=== PATIENT | female | born 1965 | race Caucasian/White ===

== ENCOUNTER → 2019-11-21 14:04 | Outpatient (BNVA) | payer BC, SELFPAY | PROVIDERS: Family Provider Family Medicine; PCP Family Medicine; Visit Provider Nurse Practitioner | DX: G89.29 Other chronic pain (principal); M51.36 Other intervertebral disc degeneration, lumbar region; M50.30 Other cervical disc degeneration, unspecified cervical region; Z79.891 Long term (current) use of opiate analgesic | CPT/HCPCS: 99214 ==

== ENCOUNTER → 2020-01-12 13:03 | Outpatient (BNVA) | payer BC, SELFPAY | PROVIDERS: Family Provider Family Medicine; PCP Internal Medicine; Visit Provider Anesthesiology | DX: G89.29 Other chronic pain (principal); M50.30 Other cervical disc degeneration, unspecified cervical region; M51.36 Other intervertebral disc degeneration, lumbar region; Z79.891 Long term (current) use of opiate analgesic | CPT/HCPCS: 99214 ==

== ENCOUNTER → 2020-03-26 10:06 | Outpatient (BNVA) | payer MEDICARE, SELFPAY | PROVIDERS: Family Provider Family Medicine; PCP Internal Medicine; Visit Provider Anesthesiology | DX: G89.29 Other chronic pain (principal); M50.30 Other cervical disc degeneration, unspecified cervical region; M51.36 Other intervertebral disc degeneration, lumbar region; M54.41 Lumbago with sciatica, right side; Z79.891 Long term (current) use of opiate analgesic | CPT/HCPCS: 99214 ==

== ENCOUNTER 2020-05-07 10:52 | Outpatient (CLI) | payer MEDICARE, SELFPAY ==
--- NOTE | 2020-05-07 10:58 | MM_ITS ---
WS: [id number] BILATERAL DIGITAL SCREENING MAMMOGRAPHY WITH CAD CLINICAL INFORMATION: SCREENING HISTORY: Screening mammogram. No current complaints. Chronic bilateral breast lumps COMPARISON: [id number] TECHNIQUE: Bilateral CC and MLO views. FINDINGS: Scattered fibroglandular densities bilaterally. No suspicious focal mass, asymmetry, calcifications, or architectural distortion. No evidence of malignancy. Lucent centered calcification left breast. MM/[place] [id number] IMPRESSION: BI-RADS: 2-Benign FOLLOW UP: 1 Year Follow-up Recommend return to annual screening mammography.
== END 2020-05-07 10:53 | disposition home or self-care (01) ==
LOC: RADSHAW 10:57
PROVIDERS: PCP Internal Medicine; Visit Provider Nurse Practitioner Family
DX: Z12.31 Encounter for screening mammogram for malignant neoplasm of breast (principal)
CPT/HCPCS: 77067

== ENCOUNTER 2020-05-09 10:08 | Outpatient (CLI) | payer MEDICARE, SELFPAY ==
--- NOTE | 2020-05-09 10:13 | MR_ITS ---
WS: [id number] MRI CERVICAL SPINE NONCONTRAST TECHNIQUE: Sagittal T1, T2 and STIR imaging. Axial T2, gradient, and fiesta imaging. CLINICAL INFORMATION: CERVICAL DISC DEGENERATION COMPARISON: None. FINDINGS: Exaggeration normal cervical lordosis. No high-grade central canal narrowing. Cord signal is normal. Slight retrolisthesis C4 on C5. C2-C3: Normal. C3-C4: Mild disc bulging with a tiny central protrusion. Mild facet arthropathy. Mild left foraminal narrowing. Spinal canal is patent. C4-C5: Mild disc bulging with osteophytic ridging. Moderate left greater than right bony foraminal na rrowing. Mild facet arthropathy. Mild central canal stenosis. C5-C6: Right pericentral disc osteophyte protrusion with mild central canal stenosis and slight conta ct of the cervical cord. Mild bilateral bony foraminal narrowing. Moderate facet arthropathy. C6-C7: Mild disc osteophyte complex with endplate ridging. Mild left and no significant right foramin al narrowing. Spinal canal is patent. C7-T1: Mild left greater than right bony foraminal narrowing. Spinal canal is patent. Mild facet arth ropathy. . Visualized brain stem structures: Normal. Prevertebral soft tissues: Normal. Spondylitic changes progressed slightly since 2016. MR/MR cervical spin wo con* [id number] IMPRESSION: 1. Exaggeration of the normal cervical lordosis. No high-grade central canal n arrowing. Cord signal is normal. 2. Mild central canal stenosis C4-C5 and C5-C6. 3. Multilevel mild to moderate bony foraminal narrowing described above. 4. Tiny left pericentral disc osteophyte protrusion C6-C7. 5. Prior postoperative changes in the upper thoracic spine with susceptibility artifact.
--- NOTE | 2020-05-09 11:00 | XR_ITS ---
WS: [id number] Lateral views of cervical spine in the flexion, extension and neutral positions. 05/09/2020 Clinical Data: cervical pain Comparison: None. Findings: No prevertebral soft tissue swelling is seen. There are no compression fractures. The disc heights ar e normal. No subluxation is seen. On flexion and extension there is no limitation of motion or sublux ation. The C6 and C7 vertebral bodies were obscured by the shoulders. XR/XR cervical spine fl/ex [id number] Impression: Negative lateral view of the cervical spine.
== END 2020-05-09 10:09 | disposition home or self-care (01) ==
PROVIDERS: Family Provider Internal Medicine; PCP Internal Medicine; Visit Provider Specialist
DX: M50.30 Other cervical disc degeneration, unspecified cervical region (principal); M48.02 Spinal stenosis, cervical region; M25.78 Osteophyte, vertebrae
CPT/HCPCS: 72040; 72141

== ENCOUNTER → 2020-05-17 13:02 | Outpatient (BNVA) | payer MEDICARE, SELFPAY | PROVIDERS: Family Provider Family Medicine; PCP Nurse Practitioner Family; Visit Provider Anesthesiology | DX: G89.29 Other chronic pain (principal); M51.36 Other intervertebral disc degeneration, lumbar region; M43.17 Spondylolisthesis, lumbosacral region; M50.30 Other cervical disc degeneration, unspecified cervical region; M50.020 Cervical disc disorder with myelopathy, mid-cervical region, unspecified level; M43.12 Spondylolisthesis, cervical region; Z98.1 Arthrodesis status; Z79.891 Long term (current) use of opiate analgesic | CPT/HCPCS: 99214 ==

== ENCOUNTER 2020-06-07 08:35 | Outpatient (CLI) | payer MEDICARE, SELFPAY ==
--- NOTE | 2020-06-07 09:00 | IR_ITS ---
WS: [id number] Lumbar myelogram, 06/07/2020 Clinical Data: thoracic pain Comparison: None. Fluoroscopy time: 5.4 minutes. Findings: With the usual technique, a 22 gauge spinal needle was inserted into the lumbar subarachnoid space at L2-L3. The contrast material was hand injected. Approximately 15 mL of 300 mg/mL Omnipaque filled the lumbar subarachnoid space. There was a partial epidural injection. Flexion, extension and neutral lateral views demonstrated no limitations of motion or increase in sub luxation. There was degenerative disc narrowing at L5-S1 with subluxation of 1.8 cm. No intramedullary, intradu ral or extradural defects could be seen. Thoracic myelogram: The contrast material flowed into the thoracic subarachnoid space. No intramedullary or intradural or extradural defects could be seen. The patient has had a thoracic fusion. There are pedicle screws on the right at T3, T4, T8 and T9. On the left the pedicle screws are at T4, T8 and T9. There are bilat eral Neff rods. There are compression fractures at T6 and T7 with an anterior fusion. Cervical myelogram: The contrast material then flowed into the cervical subarachnoid space. Lateral imaging in the neutra l, flexion and extension views was obtained. No intramedullary, intradural or extradural defects are seen. There was no limitation of motion or subluxation on flexion or extension. IR/IR myelogram spine total [id number] Impression: Negative lumbar myelogram. IMPRESSION: Negative thoracic myelogram. IMPRESSION: Negative cervical myelogram.
--- NOTE | 2020-06-07 11:00 | CT_ITS ---
WS: [id number] CT cervical spine. Additional two-dimensional coronal and sagittal reconstruction was performed post myelogram. 06/07/2020 Clinical Data: cervical pain Comparison: CT cervical spine postmyelogram, 02/18/2017. DLP: 2462.[address] scans at [facility] use at least one of these dose optimization techniques: automat ed exposure control; mA and/or kV adjustment per patient size (includes targeted exams where dose is matched to clinical indication); or iterative reconstruction. Findings: No compression fractures are seen. The disc heights are normal except for narrowing at C6-C7.. The sp inous processes are in good alignment. There is a minimal retrolisthesis of 0.2 cm of C4 on C5 unchan ged. The odontoid is unremarkable. There is no prevertebral soft tissue swelling. The soft tissues of the cervical spine in the lung apices are not remarkable. C2-C3: No disc bulge, canal stenosis or foraminal stenosis is seen. C3-C4: No disc bulge, canal stenosis or foraminal stenosis is seen. C4-C5: Minimal disc osteophyte posterior impingement is seen but there is no significant canal stenos is. There is left facet joint arthritis. C5-C6: No disc bulge, canal stenosis or foraminal stenosis is seen. C6-C7: There is posterior disc osteophyte on the left paracentrally with mild canal stenosis. C7-T1: No disc bulge, canal stenosis or foraminal stenosis is seen. CT/CT cervical spine w con [id number] Impression: 1. Negative for significant change from prior study. 2. Minimal canal stenosis at C6-7 unchanged.
--- NOTE | 2020-06-07 11:00 | CT_ITS ---
WS: [id number] CT scan of the thoracic spine. Additional two-dimensional coronal and sagittal reconstruction was per formed post myelogram. 06/07/2020 Clinical Data: thoracic pain Comparison: CT thoracic spine post myelogram, 02/18/2017. DLP: 923.[address] scans at [facility] use at least one of these dose optimization techniques: automat ed exposure control; mA and/or kV adjustment per patient size (includes targeted exams where dose is matched to clinical indication); or iterative reconstruction. Findings: There are compression fractures of the T5 and T6 vertebral bodies with an anterior fusion. There is p osterior impingement of the posterior inferior and anterior superior aspects of the T5 and T6 vertebr al bodies into the spinal canal of approximately 0.5 cm unchanged. There are pedicle screws at T3, T4 , T7 and T8 and these have not changed in position. The left T3 pedicle screw does penetrate obliquel y and ends adjacent to or perhaps even within the thoracic subarachnoid space and this is unchanged. The bilateral pedicle screws are connected with Neff rods. There has been a laminectomy at the T5 level, also unchanged. There is a kyphosis at the T5 level also unchanged. No intramedullary, intr adural or extradural defects are seen. The disc spaces from T1-T2 through T4-T5 show no significant narrowing. At T5-C6 there is severe disc space narrowing which is unchanged. At T8-T9 there is a left paracentral disc osteophyte encroachment on the left unchanged. The disc spaces from T9-T10 inferiorly to the T12-L1 no change from before. CT/CT thoracic spine w con [id number] Impression: 1. No change in compression fractures of T5 and T6. 2. No change in posterior fusion from T3 through T8 and position of pedicle scr ews. 3. No change in central canal stenosis at the T5-T6 level.
--- NOTE | 2020-06-07 11:00 | CT_ITS ---
WS: [id number] CT of the lumbar spine, additional two-dimensional coronal and sagittal imaging was obtained post mye logram. 06/07/2020 Clinical Data: lumbar pain Comparison: None. DLP: 969.[address] scans at [facility] use at least one of these dose optimization techniques: automat ed exposure control; mA and/or kV adjustment per patient size (includes targeted exams where dose is matched to clinical indication); or iterative reconstruction. Findings: There is a 1.8 cm subluxation of L5 on S1 with degenerative disc disease. No lumbar victoriano phyllis fractures are seen. There are hypertrophic changes between the L2, L3, L4 and L5 spinous process es. T12-L1: No canal stenosis, disc bulge or foraminal narrowing is seen. L1-L2: No canal stenosis, disc bulge or foraminal narrowing is seen. L2-L3: No canal stenosis, disc bulge or foraminal narrowing is seen. L3-L4: No canal stenosis, disc bulge or foraminal narrowing is seen. L4-L5: There is a small central bulging disc with posterior osteophyte formation. The facet joints ar e hypertrophic. This causes canal and foraminal stenosis. 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 However no canal stenosis or foraminal stenosis is seen. CT/CT lumbar spine w con [id number] Impression: 1. Negative for intramedullary, intradural or extradural defects. 2. Canal and foraminal stenosis at L4-L5. 3. 1.8 cm subluxation of L5 on S1 with degenerative disc changes.
[2020-06-07] MEDS: iohexol 300 mg/mL 50 mL Btl INTRATHECA (11:03)
== END 2020-06-07 08:36 | disposition home or self-care (01) ==
LOC: RADWPI 08:39
PROVIDERS: PCP Nurse Practitioner Family; Visit Provider Specialist
DX: S22.050A Wedge compression fracture of T5-T6 vertebra, initial encounter for closed fracture (principal); M43.24 Fusion of spine, thoracic region; M48.04 Spinal stenosis, thoracic region; M48.061 Spinal stenosis, lumbar region without neurogenic claudication; M48.02 Spinal stenosis, cervical region; X58.XXXA Exposure to other specified factors, initial encounter
CPT/HCPCS: 62305; 72040; 72120; 72126; 72129; 72132; Q9967

== ENCOUNTER → 2020-07-24 12:44 | Outpatient (BNVA) | payer MEDICARE, SELFPAY | PROVIDERS: Family Provider Family Medicine; PCP Nurse Practitioner Family; Visit Provider Anesthesiology | DX: G89.29 Other chronic pain (principal); M51.36 Other intervertebral disc degeneration, lumbar region; M43.17 Spondylolisthesis, lumbosacral region; M50.30 Other cervical disc degeneration, unspecified cervical region; M50.020 Cervical disc disorder with myelopathy, mid-cervical region, unspecified level; M43.12 Spondylolisthesis, cervical region; Z98.1 Arthrodesis status; Z79.891 Long term (current) use of opiate analgesic | CPT/HCPCS: 99214 ==

== ENCOUNTER → 2020-08-26 13:50 | Outpatient (BNVA) | payer MEDICARE, SELFPAY | PROVIDERS: Family Provider Family Medicine; PCP Nurse Practitioner Family; Referring Provider Licensed Practical Nurse; Visit Provider Specialist | DX: G56.01 Carpal tunnel syndrome, right upper limb (principal) | CPT/HCPCS: 73110 ==

== ENCOUNTER → 2020-09-25 13:27 | Outpatient (BNVA) | payer MEDICARE, SELFPAY | PROVIDERS: Family Provider Family Medicine; PCP Nurse Practitioner Family; Visit Provider Anesthesiology | DX: G89.29 Other chronic pain (principal); M54.41 Lumbago with sciatica, right side; M51.36 Other intervertebral disc degeneration, lumbar region; M43.17 Spondylolisthesis, lumbosacral region; M43.12 Spondylolisthesis, cervical region; M50.020 Cervical disc disorder with myelopathy, mid-cervical region, unspecified level; M50.30 Other cervical disc degeneration, unspecified cervical region; Z98.1 Arthrodesis status; Z79.891 Long term (current) use of opiate analgesic | CPT/HCPCS: 99214 ==

== ENCOUNTER → 2020-11-27 10:22 | Outpatient (BNVA) | payer MEDICARE, SELFPAY | PROVIDERS: Family Provider Family Medicine; PCP Nurse Practitioner Family; Visit Provider Nurse Practitioner | DX: G89.29 Other chronic pain (principal); G44.009 Cluster headache syndrome, unspecified, not intractable; M43.17 Spondylolisthesis, lumbosacral region; M51.36 Other intervertebral disc degeneration, lumbar region; M50.30 Other cervical disc degeneration, unspecified cervical region; M50.020 Cervical disc disorder with myelopathy, mid-cervical region, unspecified level; M43.12 Spondylolisthesis, cervical region; Z98.1 Arthrodesis status; Z79.891 Long term (current) use of opiate analgesic | CPT/HCPCS: 99214 ==

== ENCOUNTER → 2020-11-29 09:38 | Outpatient (BNVA) | payer MEDICARE, SELFPAY | PROVIDERS: Family Provider Family Medicine; PCP Nurse Practitioner Family; Visit Provider Orthopaedic Surgery | DX: M43.06 Spondylolysis, lumbar region (principal); Z98.1 Arthrodesis status | CPT/HCPCS: 72072; 72110 ==

== ENCOUNTER → 2021-02-12 10:01 | Outpatient (BNVA) | payer MEDICARE, SELFPAY | PROVIDERS: Family Provider Family Medicine; PCP Nurse Practitioner Family; Visit Provider Anesthesiology | DX: G89.29 Other chronic pain (principal); M50.30 Other cervical disc degeneration, unspecified cervical region; G44.009 Cluster headache syndrome, unspecified, not intractable; M54.41 Lumbago with sciatica, right side; M51.36 Other intervertebral disc degeneration, lumbar region; M43.06 Spondylolysis, lumbar region; Z98.1 Arthrodesis status; Z79.1 Long term (current) use of non-steroidal anti-inflammatories (NSAID); Z79.891 Long term (current) use of opiate analgesic | CPT/HCPCS: 99214 ==

== ENCOUNTER → 2021-03-03 15:33 | Outpatient (BNVA) | payer MEDICARE, SELFPAY | PROVIDERS: Family Provider Family Medicine; PCP Nurse Practitioner Family; Visit Provider Orthopaedic Surgery | DX: Z01.812 Encounter for preprocedural laboratory examination (principal); Z20.822 Contact with and (suspected) exposure to COVID-19 | CPT/HCPCS: 87635 ==

== ENCOUNTER 2021-03-06 07:09 | Outpatient (CLI) | payer MEDICARE, SELFPAY ==
--- NOTE | 2021-03-06 07:36 | XR_ITS ---
WS: [id number] KUB, AP view, 03/06/2021 Clinical Data: Renal calculus or stone Comparison: KUB, 08/29/2018. Findings: No abnormal intraabdominal masses are seen. There is no dilatated small bowel or evidence of obstruct ion. There are numerous calcifications overlying both kidneys. There are clips in the right upper quadrant from a cholecystectomy. There is an L5 laminectomy. There are no calcifications in the true pelvis. XR/XR KUB [id number] Impression: Bilateral renal calculi.
== END 2021-03-06 07:10 | disposition home or self-care (01) ==
PROVIDERS: PCP Nurse Practitioner Family; Visit Provider Urology
DX: N20.0 Calculus of kidney (principal)
CPT/HCPCS: 74018; 81003

== ENCOUNTER → 2021-03-14 11:01 | Outpatient (BNVA) | payer MEDICARE, SELFPAY | PROVIDERS: PCP Nurse Practitioner Family; Visit Provider Nurse Practitioner Family | DX: N12 Tubulo-interstitial nephritis, not specified as acute or chronic (principal) | CPT/HCPCS: 81003 ==

== ENCOUNTER 2021-03-19 13:01 | Outpatient (CLI) | payer MEDICARE, SELFPAY | END 2021-03-19 13:02 | disposition home or self-care (01) | PROVIDERS: PCP Nurse Practitioner Family; Visit Provider Nurse Practitioner Family | DX: N20.9 Urinary calculus, unspecified (principal) | CPT/HCPCS: 74018; 81003 ==

== ENCOUNTER → 2021-04-04 14:29 | Outpatient (BNVA) | payer MEDICARE, SELFPAY | PROVIDERS: PCP Nurse Practitioner Family; Visit Provider Orthopaedic Surgery | DX: Z01.818 Encounter for other preprocedural examination (principal); Z20.822 Contact with and (suspected) exposure to COVID-19 | CPT/HCPCS: 87635 ==

== ENCOUNTER → 2021-04-08 10:26 | Outpatient (BNVA) | payer MEDICARE, SELFPAY | PROVIDERS: PCP Nurse Practitioner Family; Visit Provider Nurse Practitioner | DX: G89.29 Other chronic pain (principal); M54.41 Lumbago with sciatica, right side; M43.17 Spondylolisthesis, lumbosacral region; M51.36 Other intervertebral disc degeneration, lumbar region; M50.30 Other cervical disc degeneration, unspecified cervical region; M43.12 Spondylolisthesis, cervical region; M50.020 Cervical disc disorder with myelopathy, mid-cervical region, unspecified level; G44.009 Cluster headache syndrome, unspecified, not intractable; Z98.1 Arthrodesis status; Z79.891 Long term (current) use of opiate analgesic | CPT/HCPCS: 99213; 99214 ==

== ENCOUNTER 2021-04-09 14:41 | Observation (INO) | payer MEDICARE, SELFPAY ==
[2021-04-02 12:07] VITALS: BMI 36.0
--- NOTE | 2021-04-02 12:34 | ANES.PREANE2 ---
Pre-Anesthetic Assessment Pre-Anesthetic Assessment: Height/Weight: Height 1.7 m Weight 104.326 kg Preop Diagnosis: hardware malfunction Proposed Procedure: Operation Date: 04/09/21 07:00 Proposed Procedures p Posterior Lumbar Interbody Fusion [id number] [id number] [id number] 28103 [id number] 13146 M43.17(Not Applicable) - Chauncey García DO s Hardware Removal Lumbar(Not Applicable) - Chauncey García DO Familial anesthetic complications: PONV - requires scopolamine Was Beta Lauryn taken within 24 hours: N/A Was Clonidine taken within 24 hours: N/A Social: Social History: No alcohol and No tobacco Exam: Pre-Anes Outpt Exam: alert, oriented x 3, clear to auscultation bilaterally and regular rate & rhythm Airway: Cervical ROM: WNL MP: 4 Dentition: Full Pulmonary: Comments: hx bronchitis and pneumonia CV/HEM: CV/HEM: HTN : Comments: on enalapril-HCTZ for kidney stones + BP Metabolic: Metabolic: Morbid obesity Musc/skel: Musc/skel: Lower Back Pain and OA/DJD Neuropsych: Neuropsych: Neuropathy (d/t hardware malplacement) Comments: curved back Anesthetic Plan: ASA status: 2 Anesthesia: General Risk of > 500 ml blood loss (7ml/kg in children): Yes, adequate IV access and fluids planned PFSH Anesthesia PFSH: Medical History Cervical disc disorder with myelopathy of mid-cervical region Chronic headaches Chronic thoracic spine pain Degenerative disc disease, cervical Encounter for long-term opiate analgesic use Lumbar degenerative disc disease Lumbar spondylolysis Spondylolisthesis of cervical region Spondylolisthesis of lumbosacral region Ureteral calculi Urolithiasis Surgical History History of ankle surgery History of thoracic spinal fusion S/P section S/P cholecystectomy S/P endoscopy upper and lower S/P fusion of thoracic spine S/P spinal fusion Family History Mother Cancer breast- at 87 Hypertension Father Cancer prostate- at 93 Diabetes Brother Chronic kidney disease (CKD) kidney stones Sister No problems noted. Social History Smoking and tobacco status: never smoked Second hand smoke exposure: No Alcohol intake: never Marital status: / Current occupational status: employed History of recent travel: No Data Anesthesia Cardiac Studies: No Data to Display
[2021-04-09] VITALS (21 sets, daily range): BP systolic 106–164; BP diastolic 76–103; PULSE 82–99; RESP 16–22; TEMP 36.3–37.1; O2SAT 94–100
--- NOTE | 2021-04-09 | SCC_ITS ---
Procedure Done: 1. L5/S1 Interbody fusion with posterolateral fusion 2. Instrumentation L4-S1 3. Insertion of Osteoamp Sponges at L5/S1 disk space 4. Laminectomy L5 for purposes of decompression 5. use of autograft from same incision 6. use of allograft 7. Bone marrow aspirate from Left iliac crest 8. Use of computer navigation/ stereotactic 9. removal of deep hardware from the thoracic spine 69 seconds of fluoroscopic guidance, for a cumulative dose of 220.0 mGy, was provided to Dr. García by the radiology department. C-arm images of the lumbar spine were saved for the patient's permanent record. [facility]
--- NOTE | 2021-04-09 | XR_ITS ---
WS: [id number] Exam: XR lumbar spine 2-3V* [id number] Date/Time of Exam: 04/09/2021 12:00 AM Reason For Exam: PLIF AND thoracic hardware removal 2 Limited posterior anterior C-arm images of the thoracic and lower lumbar spine are submitted for ev aluation. Previously noted hardware in the thoracic spine has been removed. Limited image PA of the lumbar spin e demonstrates pedicle screws at the L5-S1 level. These are partially obscured by surgical retractors . No other significant finding on this limited study.
[2021-04-09] MEDS: sodium chloride 0.9% 1,000 ML 30 ML IV (06:35)
--- NOTE | 2021-04-09 06:48 | W.PM.OPSUD ---
Surgery/Procedure H&P Update DATE OF PROCEDURE: April 09, 2021 DATE H&P PERFORMED: 04/09/21 PREOP DIAGNOSIS: lumbar Spondylolisthesi PLANNED PROCEDURE: Operation Date: 04/09/21 07:00 Proposed Procedures p Posterior Lumbar Interbody Fusion [id number] 11963 85795 70979 01125 11311 M43.17(Not Applicable) - Chauncey García DO s Hardware Removal Lumbar(Not Applicable) - Chauncey García DO
[2021-04-09] MEDS: scopolamine 1.5 Patch 1 PATCH TRANSDERMA (06:50)
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
[2021-04-09] MEDS: clindamycin 900 MG/50 ML PREMIX 100 MG IV ×2 (06:59→15:55)
--- NOTE | 2021-04-09 06:59 | P.ANESUD_ITS ---
Pre-Anesthetic Update Pre-Anesthetic Assessment: Date of Surgery/Procedure: 04/09/21 Preop Pinky gnosis: lumbar Spondylolisthesi Proposed Procedure: Operation Date: 04/09/21 07:00 Proposed Procedures p Posterior Lumbar Interbody Fusion [id number] 38111 M43.17(Not Applicable) - Chauncey H Raquel, DO s Hardware Removal Lumbar(Not Applicable) - Chauncey H Raquel, DO Any changes to Pre-Anesthetic Assessment?: No Last Intake: Intake Last Liquid Date 04/08/21 Last Liquid Time 21:00 Last Solid Date 04/08/21 Last Solid Time 21:00 Vitals: Temperature 97.4 F L 04/09/21 06:23 Temperature Source Temporal Artery S can 04/09/21 06:23 Pulse Rate 99 04/09/21 06:23 Respiratory Rate 16 04/09/21 06:23 Blood Pressure 155/103 04/09/21 06:23 Blood Pressure Sarina n 120 04/09/21 06:23 Pulse Oximetry 96 04/09/21 06:23 Oxygen Delivery Me thod 04/09/21 06:23 Exam: Pre-Anes Outpt Exam: alert, oriented x 3, clear to auscultation bilaterally and regular rate & rhythm Cardiac Studies: No Data to Display
[2021-04-09] MEDS: vancomycin 1,000 MG SDV 1000 MG XX ×4 (08:10→13:15)
[2021-04-09] MEDS: heparin, porcine 1,000 unit/mL INJ 10 mL 10000 UNIT IRRIGATION (08:11)
--- NOTE | 2021-04-09 13:13 | SUR.OPER ---
Family Notified Of Patient's Status Via Phone.
--- NOTE | 2021-04-09 13:49 | P.OP_ITS ---
Operative Report Date of procedure: April 09, 2021 Pre-op Diagnosis: lumbar Spondylolisthesis L5/S1; painful thoracic hardware Post-op diagnosis: same Procedure Done: 1. L5/S1 Interbody fusion with posterolateral fusion 2. Instrumentation L4-S1 3. Insertion of Osteoamp Sponges at L5/S1 disk space 4. Laminectomy L5 for purposes of decompression 5. use of autograft from same incision 6. use of allograft 7. Bone marrow aspirate from Left iliac crest 8. Use of computer navigation/ stereotactic 9. removal of deep hardware from the thoracic spine Surgeon: Chauncey García Anesthesia: General Estimated blood loss (mL): 300 Condition: stable Disposition: PACU Procedure: 1. L5/S1 Interbody fusion with posterolateral fusion 2. Instrumentation L4-S1 3. Insertion of Osteoamp Sponges at L5/S1 disk space 4. Laminectomy L5 for purposes of decompression 5. use of autograft from same incision 6. use of allograft 7. Bone marrow aspirate from Left iliac crest 8. Use of computer navigation/ stereotactic 9. removal of deep hardware from the thoracic spine Patient is brought to the operative suite. After undergoing anesthesia, the patient had neuro monitoring attached. Patient was then placed in the prone position on the Boyd table. All areas of impingement were well-padded. Patient was then prepped and draped in the normal sterile fashion. Skin incision was then made over the L5/S1 space. Subperiosteal dissection was made out to the transverse processes of L4 and L5 and S1. Once the exposure was complete attention was then brought to placing the fiducial for the computer- assisted navigation. 2 pins were placed into the left iliac crest. Then the fiducial was attached to this. And links to the computer monitor. Prior to placing the pedicle screws the [employer] bone marrow aspirate kit was used to aspirate bone marrow aspirate through a separate incision in the left iliac crest. This was done by using the sharp probe to open up the bone. Aspiration was performed and then the blunt probe was then used to dissect down to through the bone tunnel. An aspirating well drawn back a millimeter approximately 20 cc of bone marrow aspirate was used. Admixed with the allograft and autograft bone that will be used. The technique for placing the pedicle screws was to use a drill followed by the gearshift probe. Followed by the ball probe to feel the superior inferior medial lateral hutchison of the pedicles. Then placement of the screws. Was done at each pedicle. Screws were placed at S1 bilaterally and L5 bilaterally and L4 bilaterally. The screws at L5 or taken out because they were used to attempt the reduction of the L5 on S1 spinal stasis however the screws ripped out of the bone. And due to the angle of these screws it was difficult to get along screws in. In the middle of the case I decided to proceed with doing L4 screws instead of L5 in order to facilitate better purchase into the bone. Next attention was brought to performing the laminectomy ofL5. This was done using the high-speed bur Kerrisons and curettes. Once the lamina was removed and then attention was brought to performing a partial facetectomy on the contralateral side. This was done again using the high-speed bur curettes and Kerrisons. The ligamentum flavum was taken down bilaterally from L5 to S1. Attention was then brought to the facet on the ipsilateral side. The facet was taken down. The s1 nerve was decompressed as it passed around the S1 pedicle. The laminectomy was done for purposes of decompressing the nerve as well as placement of the cage. The L5 nerve was identified as it traversed through the L5/S1 foramen. The thecal sac was identified and retracted. The L5/S1 disc base was identified. Using a knife the disc base was opened. And then sequential aime were placed. The first shaver was a 6 and the last shaver was a 9shaver. The disc space did not move and with the patient having a spondylolisthesis. It would be difficult to get a cage in. At this point I elected to pack the disc space with osteoamp sponges. In order to facilitate fusion in situ. Attention was then brought to attaching the rods to the screws placed in the L4- S1 bilaterally. Initial attempts were made to just do L5-S1. However as descri bed above the screws ripped out of the bone. Screws were final at L4 and S1. Caps were torqued into position. Locking the construct in place. Wound was copiously irrigated and then attention was brought to decorticating the facets and transverse processes laterally. Bone that was taken down from the lamina was used along with osteoamp fibers and sponges were packed into the lateral gutters along the facet joints. This was done bilaterally. Wound was then closed in a layered fashion starting with the thoracolumbar fascia. 0-stratafix was used the sub cutaneous tissue was closed with 2-0 st ratafix and skin with 3-0 nylon. Next attention was brought to the thoracic spine. The skin is made using previous skin incision. The screws are identified. The proximal screws were loose. The proximal distal screws were identified and caps of the screws were removed rods were removed cross-links removed then pedicle screws removed wounds irrigated Bankart was placed and closed with oh strata fix 2 oh strata fix and nylon suture. Silverlon dressing was applied to both wounds. Patient was then placed in the supine position. The endotracheal tube was removed and patient was transferred to the PACU in stable condition.
[2021-04-09] MEDS: fentaNYL 50 mcg/mL INJ 2mL IVP ×2 (14:17→14:21)
[2021-04-09] MEDS: HYDROmorphone 1 mg/mL INJ 1 mL 0.5 MG IVP ×2 (14:22→15:59)
[2021-04-09] MEDS: acetaminophen 1,000 MG/100 ML PIGGYBACK 400 MG IV (14:23)
--- NOTE | 2021-04-09 15:16 | ANE.PACU2 ---
Inpatient post-anesthesia follow up: Airway intact: Yes Vital signs: Temperature 97.8 F Pulse Rate 86 Respiratory Rate 18 Blood Pressure 164/94 Pulse Oximetry 94 Oxygen Delivery Me thod Room Air Oxygen Flow Rate 6 Fraction of Inspir ed Oxygen Hydration adequate: Yes Nausea and vomiting: No Pain level: 5 Additional Comments: Sedated
[2021-04-09] MEDS: lactated ringers 1,000 ML 90 ML IV (15:47)
[2021-04-09] MEDS: morphine ER (12 HR) 30 mg tablet PO (15:59)
[2021-04-09] MEDS: duloxetine 60 mg Capsule PO (15:59)
[2021-04-09] MEDS: ketorolac 30 mg/mL INJ IVP ×2 (15:59→22:14)
--- NOTE | 2021-04-09 17:01 | ECG_ITS ---
[facility] ED Test Date: 2021-04-09 Pat Name: Gregoria Chu Department: Room: 261 Gender: Female Ase Certified Technician: : [id number] Requested By: Tl Treviño Order Number: [id number] Rosemarie MD: Delia Malone M.D. Measurements Intervals [place] Rate: 86 P: 41 MD: 179 QRS: -30 QRSD: 150 T: 4 QT: 378 QTc: 453 Interpretive Statements SINUS RHYTHM BORDERLINE LEFT AXIS DEVIATION [QRS AXIS < -20] RIGHT BUNDLE BRANCH BLOCK [120+ ms QRS DURATION, UPRIGHT V1, 40+ ms S IN I/aVL/V4/V5/V6] Compared to ECG 11/27/2014 12:25:25 Right bundle-branch block now present Myocardial infarct finding no longer present Electronically Signed On 04-11-2021 22:28:16 CDT by Delia Malone M.D. [id number]
--- NOTE | 2021-04-09 17:01 | XR_ITS ---
WS: [id number] Exam: XR chest 1V portable [id number] Date/Time of Exam: 04/09/2021 5:32 PM Reason For Exam: post op Comparison 11/16/2015. The lungs are clear and fully expanded. Normal cardiomediastinal structures and regional bony element s. No pleural effusions. There has been removal of orthopedic hardware from the upper T-spine since p rior study. XR/XR chest 1V portable [id number] IMPRESSION: 1. No acute cardiopulmonary finding.
--- NOTE | 2021-04-09 17:05 | P.CONIM_ITS ---
Providers/Reason For Consult Consulting Physician/Specialty*: MD Kamila/internal medicine Reason for Consult*: Medicine comorbidities Attending Physician: Chauncey García DO Primary Care Provider: AYAAN Styles History of Present Illness History of Present Illness Gregoria Chu is a 55 year old female with past medical history of morbid obesity, hypertension, degenerative disc disorder, on chronic pain medication followed up with pain clinic, nephrolithiasis, recurrent UTIs underwent spine surgery today. Medicine was consulted for managing medical comorbidities. As per the op note patient had an estimated blood loss of 300 cc and she had an extensive spinal surgery today. On examination patient is lying comfortably in bed, still drowsy postoperatively. Most of the history taken through review of the chart. No blood work in the system. Currently on examination patient has heart rate of 89 bpm with blood pressure of 148/96 mmHg on 3 L nasal cannula saturating 98%. Review of Systems General: Reports: ROS unobtainable due to mental status Meds/Allergies Home Medications and Allergies Home Medications Medication Instructions Recorded Confirmed Last Taken Type ascorbic acid (vitamin C) 500 mg 500 mg PO Q12H 10/19/19 04/09/21 04/08/21 History capsule,extended release multivitamin with minerals-folic 1 tab PO DAILY 10/19/19 04/09/21 04/08/21 History acid 0.4 mg tablet sennosides 8.6 mg capsule 8.6 mg PO BID PRN 10/19/19 04/09/21 04/08/21 History cranberry fruit concentrate 250 mg 250 mg PO TID 01/12/20 04/09/21 04/08/21 History chewable tablet enalapril 10 1 tab PO QAM #30 tab 09/02/20 04/09/21 04/08/21 Rx mg-hydrochlorothiazide 25 mg tablet cyclobenzaprine 5 mg tablet 5 mg PO BID PRN 90 Days #180 tab 01/03/21 04/09/21 04/08/21 Rx sumatriptan succinate 100 mg tablet See Rx Instructions PO .COMPLEX #9 02/12/21 04/08/21 Unknown Rx tab nitrofurantoin 100 mg PO BID #20 cap 03/06/21 04/09/21 04/08/21 Rx monohydrate/macrocrystals 100 mg capsule methenamine hippurate 1 gram tablet 1 g PO BID #180 tab 03/19/21 04/09/21 04/08/21 Rx duloxetine 60 mg capsule,delayed 60 mg PO QDAY #90 cap 04/08/21 04/09/21 04/08/21 Rx release morphine 15 mg immediate release 15 mg PO TID PRN 30 Days #90 tab 04/08/21 04/09/21 Unknown Rx tablet morphine 15 mg immediate release 15 mg PO TID PRN 30 Days #90 tab 04/08/21 04/09/21 04/08/21 Rx tablet morphine 30 mg tablet,extended 30 mg PO Q8H 30 Days #90 tab 04/08/21 04/09/21 Unknown Rx release morphine 30 mg tablet,extended 30 mg PO Q8H 30 Days #90 tab 04/08/21 04/09/21 04/08/21 Rx release Allergies Allergy/AdvReac Type Severity Reaction Status Date / Time cephalexin [From Keflex] Allergy rash, Verified 04/08/21 10:03 swelling methadone Allergy drug Verified 04/08/21 10:03 allergy oxycodone [From Percocet] Allergy rash,swelli Verified 04/08/21 10:03 ng Sulfa (Sulfonamide Allergy hives Verified 04/08/21 10:03 Antibiotics) trimethoprim [From Bactrim] Allergy rash, Verified 04/08/21 10:03 blisters zolpidem [From Ambien] Allergy allergy Verified 04/08/21 10:03 Current Medications Current Medications Generic Name Dose Route Start Last Admin Trade Name Freq PRN Reason Stop Dose Admin Duloxetine HCl 60 mg 04/09/21 16:00 04/09/21 15:59 Duloxetine 60 Mg Capsule PO 60 mg DAILY DYLLAN Administration Enalapril Maleate 10 mg 04/09/21 09:00 04/09/21 15:43 Enalapril 10 Mg Tablet PO Not Given DAILY DYLLAN Lactated Ringer's 1,000 mls @ 90 mls/hr 04/09/21 14:15 04/09/21 15:47 Lactated Ringers IV 90 mls/hr .Q11H7M DYLLAN Administration Clindamycin HCl/Dextrose 900 mg in 50 mls @ 100 mls/hr 04/09/21 16:00 04/09/21 16:36 Cleocin IV 04/10/21 08:29 Infused Q8H DYLLAN Infusion Ketorolac Tromethamine 30 mg 04/09/21 14:14 04/09/21 15:59 Ketorolac 30 Mg/Ml Inj IVP 30 mg Q6H PRN Administration BREAKTHROUGH PAIN Morphine Sulfate 30 mg 04/09/21 16:30 04/09/21 15:59 Morphine Er (12 Hr) 30 Mg Tablet PO 30 mg Q8H DYLLAN Administration PFSH Acute PFSH: Medical History (Updated 04/09/21 @ 17:09 by Tl Treviño MD) Cervical disc disorder with myelopathy of mid-cervical region Chronic headaches Chronic thoracic spine pain Degenerative disc disease, cervical Encounter for long-term opiate analgesic use Hypertension Lumbar degenerative disc disease Lumbar spondylolysis Spondylolisthesis of cervical region Spondylolisthesis of lumbosacral region Ureteral calculi Urolithiasis Surgical History (Updated 04/09/21 @ 17:09 by Tl Treviño MD) History of ankle surgery History of thoracic spinal fusion S/P section S/P cholecystectomy S/P endoscopy upper and lower S/P fusion of thoracic spine S/P spinal fusion Family History Mother Cancer breast- at 87 Hypertension Father Cancer prostate- at 93 Diabetes Brother Chronic kidney disease (CKD) kidney stones Sister No problems noted. Social History Smoking and tobacco status: never smoked Second hand smoke exposure: No Alcohol intake: never Marital status: / Current occupational status: employed History of recent travel: No Vitals/I&O/Wt Last Vital Signs Temp 97.8 F 04/09/21 14:50 Pulse 89 04/09/21 15:40 Resp 16 04/09/21 15:33 BP 164/94 04/09/21 14:50 Pulse Ox 94 04/09/21 15:33 04/09/21 04/09/21 04/09/21 06:59 14:59 22:59 Intake Total 1250 / 1250 1050 / 2300 Output Total 950 / 950 Balance 300 / 300 1050 / 1350 Physical Exam Narrative: EXAM NARRATIVE: General: No acute distress, drowsy, postoperative, NC oxygen supplementation HEENT: PERRLA, pupils bilaterally equal and reactive Chest: Normal vesicular breath sounds bilaterally, good equal air entry bilaterally, occasional rhonchi CVS: S1-S2 regular, no murmurs, no tachycardia, no gallops, no rubs Abdomen: Soft, nontender, no organomegaly, bowel sounds present, morbidly obese Neuro: No focal deficits, no facial deformity, AO x2-3, drowsy, maintaining airway Urinary Catheter Management^: F: Cath Placed During This Visit: yes Urinary Catheter Date of Insertion: 04/09/21 Urinary Catheter Time of Insertion: 07:30 A&P Assessment and plan (1) S/P spinal surgery: Status: Acute (2) Hypertension: Status: Acute (3) Encounter for long-term opiate analgesic use: Status: Chronic Additional A&P Information Postoperative care: Anticoagulation, physical therapy, pain management, perioperative antibiotics as per the surgical team. Check CBC, CMP, EKG, chest x-ray. Hypertension: Goal blood pressure less than 140/90 mmHg. For now continue with home medication of enalapril and hydrochlorothiazide. Check echocardiogram. Continue to monitor blood pressures daily. If blood pressure elevated will uptitrate the medications. Hypoxia: Most likely postoperative secondary to anesthesia. Continue oxygen supplementation keeping saturation over 92%. Patient would most likely benefit from sleep study as an outpatient. DuoNebs as needed. Continue other chronic medication including duloxetine, pain medication including morphine, sumatriptan as needed. We will change medication as per the ongoing clinical picture and results of the blood work. Check TSH, HbA1c, lipid panel, iron panel, ferritin. Full code. Advance diet as per surgical team. Anticoagulation is a surgical team. Consult Attestations Medical Necessity Statement: As per primary team Time Spent in Patient Care: Greater than 35 minutes (>than 50% of time spent in counselling and/or direct pt care on unit) . Coding Level of Care Code Acute Process Manufacturing Engineer for Chg Fwd Diagnoses S/P spinal surgery Z98.890 Hypertension I10 Encounter for long-term opiate analgesic use Z79.891
[2021-04-09] MEDS: docusate sodium 100 mg Capsule PO (17:42)
[2021-04-09] MEDS: HYDROcodone-acetaminophen 5-325 mg Tablet PO ×2 (19:34→23:48)
[2021-04-09 20:21] LABS: Basophils % 0.3 %; Hematocrit 34.9 % (37.0-47.0); Hemoglobin 11.2 g/dL (11.5-15.3); Lymphocytes # 0.7 10^3/uL (0.8-4.8); Lymphocytes % 6.3 %; Mean Corpuscular HGB Conc 32.1 g/dL (30.0-36.0); Mean Corpuscular Hemoglobin 28.6 pg (28.0-34.0); Monocytes # 0.3 10^3/uL (0.2-0.9); Neutrophils # 10.19 10^3/uL (1.8-7.7); Nucleated Red Blood Cells % 0 %; Platelet Count 225 10^3/cmm (130-400); Red Blood Count 3.92 10^6/uL (4.1-5.3); White Blood Count 11.3 10^3/uL (4.0-10.0)
[2021-04-09 20:47] LABS: Alanine Aminotransferase 37 U/L (0-33); Albumin Level 3.4 g/dL (3.5-5.2); Alkaline Phosphatase 101 IU/L (35-105); Anion Gap 14.3 (5-19); Aspartate Amino Transferase 37 U/L (0-32); Blood Urea Nitrogen 16 mg/dL (6-20); Calcium 7.7 mg/dL (8.5-10.5); Carbon Dioxide 26 mmol/L (22-29); Chloride 98 mmol/L (98-107); Globulin 2.8 g/dL (1.3-4.6); Glomerular Filtration Rate 74.2 mL/min (90-130); Glucose 197 mg/dL (65-115); NT Pro B Type Natriuretic Pept 42 pg/mL (0-125); Osmolality Calculated 285 mOsm/kg (285-295); Potassium 4.3 mmol/L (3.5-5.1); Sodium 134 mmol/L (136-145); Total Bilirubin 0.3 mg/dL (0.15-1.2); Total Protein 6.2 g/dL (6.6-8.7)
[2021-04-09 20:48] LABS: Thyroid Stimulating Hormone 1.49 uIU/mL (0.27-4.20)
[2021-04-09] MEDS: cyclobenzaprine 10 mg Tablet 5 MG PO (21:00)
[2021-04-09] MEDS: ascorbic acid 500 mg Tablet PO (21:04)
[2021-04-09 22:41] LABS: Iron 24 ug/dL (37-145); Percent Saturation 9.5 % (20-50); Total Iron Binding Capacity 252 mcg/dl; Unsaturated Iron Binding 228 ug/dL (112-347)
[2021-04-10] VITALS (8 sets, daily range): BP systolic 104–155; BP diastolic 66–82; PULSE 80–96; RESP 14–18; TEMP 36.3–37.4; O2SAT 91–98
[2021-04-10] MEDS: clindamycin 900 MG/50 ML PREMIX 100 MG IV ×2 (00:23→08:05)
[2021-04-10] MEDS: morphine ER (12 HR) 30 mg tablet PO ×3 (00:23→16:43)
[2021-04-10] MEDS: HYDROcodone-acetaminophen 5-325 mg Tablet PO ×3 (03:29→13:25)
[2021-04-10] MEDS: lactated ringers 1,000 ML 90 ML IV ×2 (03:32→15:45)
[2021-04-10 03:42] LABS: Estmated Average Glucose 123; Hemoglobin A1C 5.9 % (4.0-6.0)
[2021-04-10 03:43] LABS: Chol HDL Ratio 3.12 mg/dL (0.0-4.40); Cholesterol 134 mg/dL (0-200); HDL Cholesterol 43 mg/dL (60-100); LDL Cholesterol Calculated 70 mg/dL (50-129); Triglycerides 106 mg/dL (0-150); VLDL Cholestrol Calculation 21 mg/dL (0-30)
[2021-04-10] MEDS: ketorolac 30 mg/mL INJ IVP ×2 (04:25→17:41)
--- NOTE | 2021-04-10 05:39 | PC.NURSE ---
SHIFT SUMMARY Has rested since admit. Up to bathroom with SBA.First time up c/o little dizzy but next times no c/o of this. Has had no c/o pain. nurse monitoring showing A-fib with PVC's Rate controlled
[2021-04-10] MEDS: enoxaparin 40 mg/0.4 mL Syringe SUBCUT (06:02)
--- NOTE | 2021-04-10 06:38 | PC.NURSE ---
SHIFT SUMMARY Started shift tonight with c/o severe back pain. Through shift has received po Hydrocodone & Flexeril as well as IV Toradol and has had c/o less pain and has been able to rest. Dressing to back and abd binder in place. Had area of bleeding through to binder about size of half dollar at start of shift and has not increased through night. Up to bathroom with assist. Moves slowly but did well with walker and nurse assist. Denies any numbness/tenderness in BLE. IV fluids infusing at 90ml/hr rate. Has had 235ml sanguinous drainage from Hemovac drain
--- NOTE | 2021-04-10 08:05 | PM.PN ---
Subjective Subjective: Interval history: Patient is doing well she is resting comfortably in bed. She stated that her leg pain is improved since surgery. She is having pain when she gets up from her thoracic and low back. Vitals/I&O/Wt Last Vital Signs Temp 97.5 F L 04/10/21 07:44 Pulse 80 04/10/21 07:44 Resp 16 04/10/21 07:44 BP 115/68 04/10/21 07:44 Pulse Ox 91 04/10/21 07:44 04/09/21 04/10/21 04/10/21 22:59 06:59 14:59 Intake Total 1530 / 2780 1335 / 4115 Output Total 295 / 1245 230 / 1475 Balance 1235 / 1535 1105 / 2640 Physical Exam Narrative: EXAM NARRATIVE: Patient resting comfortably in bed. Drain put out 260. Urinary Catheter Management^: F: Cath Placed During This Visit: yes Urinary Catheter Date of Insertion: 04/09/21 Urinary Catheter Time of Insertion: 07:30 Data : 04/09/21 20:07 04/09/21 20:07 A&P Assessment and plan (1) S/P spinal surgery: Patient is postop day #1 on L4-S1 posterior spine fusion. As well as hardware removal. Patient has significant pain but is getting up ambulating. Will need 1 more day of therapy and likely be discharged tomorrow. We can discharge the drain today. Status: Acute Attestations Medical Necessity Statement*: Pain control and physical therapy. Plan on discharge tomorrow Coding Level of Care Code Acute Process Equipment Operator for Eva Gunter Diagnoses S/P spinal surgery Z98.890
[2021-04-10] MEDS: hydroCHLOROthiazide 25 mg Tablet 12.5 MG PO (08:06)
[2021-04-10] MEDS: ascorbic acid 500 mg Tablet PO ×2 (08:07→20:57)
[2021-04-10] MEDS: duloxetine 60 mg Capsule PO (08:07)
[2021-04-10] MEDS: docusate sodium 100 mg Capsule PO ×2 (08:07→17:26)
[2021-04-10] MEDS: nitrofurantoin SR (BID) 100 mg Capsule PO ×2 (08:07→17:26)
--- NOTE | 2021-04-10 10:48 | PC.NURSE ---
Drain Removal Using clean technique, hemovac drain removed without complication. Patient tolerated well. Applied dry absorbent dressing.
--- NOTE | 2021-04-10 11:01 | PC.CHAP ---
Pastoral Care Encounter/Spiritual Assessment Type of Contact [] Declined drum saw operator visit [] Patient/Family/Request visit [] Outpatient visit [] Follow-up visit [] Physician referral [] Code/Alert [x] Routine visit [] Staff referral [] Actively dying [] Patient sleeping [] Family support [] [] Out of room [] Palliative care [] [x] Receiving care in room [] Pre-surgical visit [] Trauma [] Long length of stay [] ICU visit [] Other: Relational/Emotional Strength [x] Patient feels connected with others/family/visitors/staff [] Distress [] Loneliness/isolation [] Abandonment Spirituality of Patient [x] Person of Betty [] Attends Presybeterian of their Betty [x] Believes in Prayer [] Reads Bible or Episcopalian materials [] There are Spiritual issues to be addressed Strip Cutter Interventions [x] Prayer [x] Active listening [x] Non-anxious presence [x] Spiritual/emotional support [] Crisis/trauma care [x] Spiritual counseling [] Bereavement support [] Provided bereavement packet [] Provided Bible/devotional materials [] Provided toy/stuffed animal, coloring book to patient or family member [] Provided Communion [] Anointing/[place] [] Salvation [x] Completed spiritual assessment [] Other: Impact on Illness or Injury [] Angry [] Fearful [x] Anxious [] Often cries [] Exhaustion [x] Unable to work [] Unable to attend restorationist [] Unable to walk/stand [] Unable to read [] Unable to drive [] Unable to eat/drink [] Unable to sleep [] Unable to be with family [] Patient intubated [] Other: Summary had surgery on back in pain will need some recovery time has a good attitude will go go home soon Time spent with patient 10 mins
--- NOTE | 2021-04-10 13:33 | P.PN_ITS ---
Subjective Subjective: Interval history: No acute events overnight. Postoperative day 1. Patient states she is doing well. Complaining of mild pain in the back. Waiting for drains to be removed by Dr. García today. Denies any nausea, burning, headache, dizziness. Has remained hemodynamically stable and afebrile overnight. Labs appreciated. Vitals/I&O/Wt Last Vital Signs Temp 98.8 F 04/10/21 11:21 Pulse 93 04/10/21 11:21 Resp 16 04/10/21 11:21 BP 104/66 04/10/21 11:21 Pulse Ox 93 04/10/21 11:21 04/09/21 04/10/21 04/10/21 22:59 06:59 14:59 Intake Total 1530 / 2780 1335 / 4115 410 / 410 Output Total 295 / 1245 230 / 1475 115 / 115 Balance 1235 / 1535 1105 / 2640 295 / 295 Physical Exam Narrative: EXAM NARRATIVE: General: No acute distress, AO x3, comfortable HEENT: PERRLA, pupils bilaterally equal and reactive Chest: Normal vesicular breath sounds bilaterally, good equal air entry bilaterally, occasional rhonchi CVS: S1-S2 regular, no murmurs, no tachycardia, no gallops, no rubs Abdomen: Soft, nontender, no organomegaly, bowel sounds present, morbidly obese Neuro: No focal deficits, no facial deformity, AO x3, bilateral plantars downgoing Urinary Catheter Management^: F: Cath Placed During This Visit: yes Urinary Catheter Date of Insertion: 04/09/21 Urinary Catheter Time of Insertion: 07:30 Data : 04/09/21 20:07 04/09/21 20:07 A&P Assessment and plan (1) S/P spinal surgery: Status: Acute (2) Hypertension: Status: Acute (3) Encounter for long-term opiate analgesic use: Status: Chronic Additional A&P Information Postoperative care: Anticoagulation, physical therapy, pain management, perioperative antibiotics as per the surgical team. Incentive spirometry. Pain control. Continue with morphine SR 30 milligrams every 8 hourly to avoid drug withdrawals. Patient takes for morphine 15 mg q8h, morphine 5 mg q8h. Stop [place] Hypertension: Goal blood pressure less than 140/90 mmHg. For now continue with home medication of enalapril and hydrochlorothiazide. Check echocardiogram. Continue to monitor blood pressures daily. If blood pressure elevated will upti trate the medications. Hypoxia: Resolved. Patient would most likely benefit from sleep study as an outpatient. DuoNebs as needed. Continue other chronic medication including duloxetine, pain medication including morphine, sumatriptan as needed. Full code. Advance diet as per surgical team. Anticoagulation is a surgical team. Attestations Medical Necessity Statement*: As per primary team. Time Spent in Patient Care: Greater than 35 minutes (>than 50% of time spent in counselling and/or direct pt care on unit) . Coding Level of Care Code Acute Data Input Clerk for Chg Fwd Diagnoses S/P spinal surgery Z98.890 Hypertension I10 Encounter for long-term opiate analgesic use Z79.898
[2021-04-10] MEDS: cyclobenzaprine 10 mg Tablet 5 MG PO (15:02)
--- NOTE | 2021-04-10 17:12 | USCV_ITS ---
Gregoria Chu Age: 55 Gender: F : 1965 Exam Date: 04/10/2021 05:43 Ordering Phys: Tl Treviño MD Technologist: Melissa Romo Exam Location: [facility] [place] Indication: HTN BP: 122 / 79 HR: 80 Rhythm: Sinus Technical Quality: Adequate MEASUREMENTS (Male / Female) Normal Values 2D ECHO LV Diastolic Diameter PLAX 4.2 cm 4.2 - 5.9 / 3.9 - 5.3 cm LV Systolic Diameter PLAX 3.3 cm LV Chamber Size 4.0 cm IVS Diastolic Thickness 1.5 cm 0.6 - 1.0 / 0.6 - 0.9 cm IVS Systolic Thickness 1.8 cm LVPW Diastolic Thickness 1.4 cm 0.6 - 1.0 / 0.6 - 0.9 cm LVPW Systolic Thickness 1.4 cm RV Chamber Size 2.3 cm LVOT Diameter 2.1 cm LV Ejection Fraction 2D Teich 44.3 % LV Ejection Fraction MOD 2C 60.8 % LV Ejection Fraction 2C AL 59.3 % LA Diameter 3.7 cm LA Width 3.3 cm LA Height 3.5 cm RA Width 3.7 cm RA Height 3.7 cm Aorta at Sinotubular Diameter 3.2 cm M-MODE LV Diastolic Diameter MM 5.1 cm 4.2 - 5.9 / 3.9 - 5.3 cm LV Systolic Diameter MM 2.8 cm LV Ejection Fraction MM Teich 76.4 % IVS Diastolic Thickness MM 1.1 cm 0.6 - 1.0 / 0.6 - 0.9 cm IVS Systolic Thickness MM 1.8 cm LVPW Diastolic Thickness MM 1.4 cm 0.6 - 1.0 / 0.6 - 0.9 cm LVPW Systolic Thickness MM 2.5 cm Aortic Annulus Diameter 3.0 cm LA Ao Ratio MM 1.5 MV E Point Septal Separation 0.4 cm DOPPLER AV Peak Velocity 160.0 cm/s LVOT Peak Velocity 117.0 cm/s AV Area Cont Eq vti 2.7 cm squared AV Area Cont Eq pk 2.5 cm squared MV Area PHT 4.1 cm squared Mitral E to A Ratio 0.8 MV E' Velocity 57.0 cm/s Mitral E to MV E' Ratio 11.7 Mitral E to LV E' Lateral Ratio 11.5 Mitral E to LV E' Septal Ratio 11.9 TR Peak Velocity 178.2 cm/s TR Peak Gradient 12.7 mmHg TR Mean Velocity 128.6 cm/s TR Mean Gradient 7.7 mmHg TR Velocity Time Integral 45.3 cm TV Peak E Velocity 75.0 cm/s Right Atrial Pressure 3.0 mmHg Pulmonary Artery Systolic Pressu 15.7 mmHg PV Peak Velocity 91.0 cm/s RV Acceleration Time 0.1 s RV Ejection Time 0.4 s RV AcT/ET 0.4 FINDINGS Left Ventricle Normal left ventricular cavity size, normal left ventricle wall thickness and normal left ventricular systolic function. Left ventricular ejection fraction is estimated at 60 %. Although no diagnostic regional wall motion abnormality could be artifact, this possibility cannot be completely excluded based on the study. Normal diastolic function. Right Ventricle Normal right ventricular size and systolic function. Right ventricular systolic pressure 15.7 mmHg. Right Atrium Normal right atrial size. Left Atrium Normal left atrial size. Mitral Valve Structurally normal mitral valve. No mitral valve stenosis. No mitral valve regurgitation. Aortic Valve Structurally normal trileaflet aortic valve. No aortic valve stenosis. No aortic valve regurgitation. Tricuspid Valve Tricuspid valve not well visualized. Trace tricuspid valve regurgitation. Pulmonic Valve Pulmonic valve not well visualized. Pericardium No pericardial effusion. Aorta Normal size aortic root. CONCLUSIONS 1. This is a technically difficult study. 2. Normal left ventricular cavity size, normal left ventricle wall thickness and normal left ventricular systolic function. Left ventricular ejection fraction is estimated at 60 %. Although no diagnostic regional wall motion abnormality could be artifact, this possibility cannot be completely excluded based on the study. Normal diastolic function. 3. Normal right ventricular size and systolic function. 4. Normal pulmonary artery pressure. 5. No prior similar studies to compare. Delia Malone MD (Electronically Signed) Final Date: 10 April 2021 17:05 S
[2021-04-10] MEDS: morphine IR 15 mg Tablet PO (18:52)
[2021-04-10] MEDS: acetaminophen 325 mg Tablet 650 MG PO (22:38)
[2021-04-11] VITALS (10 sets, daily range): BP systolic 127–170; BP diastolic 64–90; PULSE 85–92; RESP 15–21; TEMP 36.7–37.4; O2SAT 93–98
[2021-04-11] MEDS: morphine ER (12 HR) 30 mg tablet PO ×3 (00:27→15:29)
[2021-04-11 02:14] LABS: Basophils % 0.4 %; Eosinophils % 0.4 %; Hematocrit 30.6 % (37.0-47.0); Hemoglobin 9.6 g/dL (11.5-15.3); Lymphocytes # 1.8 10^3/uL (0.8-4.8); Lymphocytes % 22.1 %; Mean Corpuscular HGB Conc 31.4 g/dL (30.0-36.0); Mean Corpuscular Hemoglobin 28.4 pg (28.0-34.0); Mean Corpuscular Volume 90.5 fL (81-99); Mean Platelet Volume 9.9 fL (7.4-10.4); Monocytes # 0.5 10^3/uL (0.2-0.9); Monocytes % 5.8 %; Neutrophils % 70.9 %; Nucleated Red Blood Cells % 0 %; Platelet Count 164 10^3/cmm (130-400); Red Blood Count 3.38 10^6/uL (4.1-5.3); Red Cell Distribution Width 13.3 % (12.1-15.1); White Blood Count 8.3 10^3/uL (4.0-10.0)
[2021-04-11 02:33] LABS: Alanine Aminotransferase 32 U/L (0-33); Albumin Level 3.2 g/dL (3.5-5.2); Alkaline Phosphatase 93 IU/L (35-105); Anion Gap 12.4 (5-19); Aspartate Amino Transferase 30 U/L (0-32); Blood Urea Nitrogen 10 mg/dL (6-20); Calcium 7.8 mg/dL (8.5-10.5); Carbon Dioxide 28 mmol/L (22-29); Chloride 102 mmol/L (98-107); Creatinine Clr Calc Pharmacy 130.0577; Globulin 2.6 g/dL (1.3-4.6); Glomerular Filtration Rate 103.4 mL/min (90-130); Glucose 134 mg/dL (65-115); Osmolality Calculated 289 mOsm/kg (285-295); Potassium 3.4 mmol/L (3.5-5.1); Sodium 139 mmol/L (136-145); Total Bilirubin 0.4 mg/dL (0.15-1.2); Total Protein 5.8 g/dL (6.6-8.7)
[2021-04-11] MEDS: lactated ringers 1,000 ML 90 ML IV ×2 (02:39→13:01)
[2021-04-11] MEDS: morphine IR 15 mg Tablet PO ×2 (02:50→23:11)
[2021-04-11] MEDS: cyclobenzaprine 10 mg Tablet 5 MG PO ×2 (03:28→20:37)
[2021-04-11] MEDS: ketorolac 30 mg/mL INJ IVP ×3 (04:01→20:49)
[2021-04-11] MEDS: enoxaparin 40 mg/0.4 mL Syringe SUBCUT (06:29)
--- NOTE | 2021-04-11 07:07 | PM.PN ---
Subjective Subjective: Interval history: Patient sitting up in chair. Patient is complaining of pain. At this point she said the Toradol helps her. Vitals/I&O/Wt Last Vital Signs Temp 99.3 F 04/11/21 04:00 Pulse 92 04/11/21 04:00 Resp 19 H 04/11/21 04:00 BP 127/74 04/11/21 04:00 Pulse Ox 93 04/11/21 04:00 04/10/21 04/11/21 04/11/21 22:59 06:59 14:59 Intake Total 480 / 1890 1461 / 3351 Balance 480 / 1775 1461 / 3236 Physical Exam Narrative: EXAM NARRATIVE: Patient sitting up in chair dressing clean dry and intact. Urinary Catheter Management^: F: Cath Placed During This Visit: yes Urinary Catheter Date of Insertion: 04/09/21 Urinary Catheter Time of Insertion: 07:30 Data : 04/11/21 02:01 04/11/21 02:01 A&P Assessment and plan (1) S/P spinal surgery: Patient is postop day #2. Patient states she is not comfortable going home yet at this time. Status: Acute Attestations Medical Necessity Statement*: Pain control Coding Level of Care Code Acute Forensic Scientist for [facility] Fw Diagnoses S/P spinal surgery Z98.890
[2021-04-11] MEDS: ascorbic acid 500 mg Tablet PO ×2 (08:09→20:31)
[2021-04-11] MEDS: hydroCHLOROthiazide 25 mg Tablet 12.5 MG PO (08:09)
[2021-04-11] MEDS: docusate sodium 100 mg Capsule PO ×2 (08:09→17:44)
[2021-04-11] MEDS: nitrofurantoin SR (BID) 100 mg Capsule PO (08:10)
[2021-04-11] MEDS: duloxetine 60 mg Capsule PO (08:10)
--- NOTE | 2021-04-11 10:18 | PM.PN ---
Subjective Subjective: Interval history: No acute events overnight. C/o pain in AM. Working appropriately with PT. Vitals/I&O/Wt Last Vital Signs Temp 98.1 F 04/11/21 08:00 Pulse 85 04/11/21 08:00 Resp 18 04/11/21 08:06 BP 149/85 04/11/21 08:00 Pulse Ox 97 04/11/21 08:00 04/10/21 04/11/21 04/11/21 22:59 06:59 14:59 Intake Total 480 / 1890 1461 / 3351 360 / 360 Balance 480 / 1775 1461 / 3236 360 / 360 Physical Exam Narrative: EXAM NARRATIVE: General: No acute distress, AO x3, comfortable HEENT: PERRLA, pupils bilaterally equal and reactive Chest: Normal vesicular breath sounds bilaterally, good equal air entry bilaterally, occasional rhonchi CVS: S1-S2 regular, no murmurs, no tachycardia, no gallops, no rubs Abdomen: Soft, nontender, no organomegaly, bowel sounds present, morbidly obese Neuro: No focal deficits, no facial deformity, AO x3, bilateral plantars downgoing Urinary Catheter Management^: F: Cath Placed During This Visit: yes Urinary Catheter Date of Insertion: 04/09/21 Urinary Catheter Time of Insertion: 07:30 Data : 04/11/21 02:01 04/11/21 02:01 A&P Assessment and plan (1) S/P spinal surgery: Status: Acute (2) Hypertension: Status: Acute (3) Encounter for long-term opiate analgesic use: Status: Chronic Additional A&P Information Postoperative care: Anticoagulation, physical therapy, pain management, perioperative antibiotics as per the surgical team. Incentive spirometry. Pain control. Continue with morphine SR 30 milligrams every 8 hourly to avoid drug withdrawals. Patient takes for morphine 15 mg q8h, morphine 5 mg q8h. Further pain management as per orthopedic team Hypertension: Goal blood pressure less than 140/90 mmHg. BP mildly elevated. Increase Enalpril to 20 mg daily, C/w home dose of HTCZ. Echo results appreciated. Continue to monitor blood pressures daily. If blood pressure elevated will uptitrate the medications. Hypoxia: Resolved. Patient would most likely benefit from sleep study as an outpatient. DuoNebs as needed. Continue other chronic medication including duloxetine, pain medication including morphine, sumatriptan as needed. Full code. 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
[2021-04-11] MEDS: potassium chloride ER 20 mEq Tablet 40 MEQ PO (11:26)
[2021-04-11] MEDS: acetaminophen 325 mg Tablet 650 MG PO (17:44)
[2021-04-11] MEDS: ferrous gluconate 324 mg Tablet PO (17:44)
--- NOTE | 2021-04-11 23:20 | PC.NURSE ---
IV IV infiltrated and was discontinued. Pt does not want IV restarted right now. Is hoping to go home tomorrow and is only getting the IV Toradol through it. Wants to see if will be ok with taking the po Morphine. Taking po fluids well
[2021-04-12] VITALS (9 sets, daily range): BP systolic 125–146; BP diastolic 68–83; PULSE 73–98; RESP 14–18; TEMP 36.4–37.3; O2SAT 95–98
[2021-04-12] MEDS: morphine ER (12 HR) 30 mg tablet PO ×3 (00:29→16:07)
[2021-04-12] MEDS: acetaminophen 325 mg Tablet 650 MG PO ×3 (03:30→20:33)
[2021-04-12] MEDS: enoxaparin 40 mg/0.4 mL Syringe SUBCUT (05:31)
--- NOTE | 2021-04-12 06:29 | PC.NURSE ---
SHIFT SUMMARY Has rested well tonight and is hoping to go home today. Has received po Morphine IR and scheduled Morphine ER tonight. Had one dose of IV Toradol before IV infiltrated and pt had wanted to leave it out. Dressing to medial back C&D. Abd binder in place. Did receive po Tylenol once for c/o headache. Up to bathroom and does well. Does have more pain when she moves around.
[2021-04-12] MEDS: ascorbic acid 500 mg Tablet PO ×2 (08:48→20:33)
[2021-04-12] MEDS: ferrous gluconate 324 mg Tablet PO ×2 (08:48→18:00)
[2021-04-12] MEDS: hydroCHLOROthiazide 25 mg Tablet 12.5 MG PO (08:48)
[2021-04-12] MEDS: docusate sodium 100 mg Capsule PO ×2 (08:48→18:00)
[2021-04-12] MEDS: duloxetine 60 mg Capsule PO (08:48)
[2021-04-12] MEDS: cyclobenzaprine 10 mg Tablet 5 MG PO ×2 (08:50→18:00)
--- NOTE | 2021-04-12 09:27 | P.PN_ITS ---
Subjective Subjective: Interval history: pt IV infiltratec still having pain issues . still no BM Vitals/I&O/Wt Last Vital Signs Temp 97.6 F 04/12/21 08:00 Pulse 73 04/12/21 08:00 Resp 18 04/12/21 08:00 BP 135/72 04/12/21 08:00 Pulse Ox 95 04/12/21 08:00 04/11/21 04/12/21 04/12/21 22:59 06:59 14:59 Intake Total 2012 600 / 2613 1400 / 1400 Balance 2012 600 / 2613 1400 / 1400 Physical Exam Narrative: EXAM NARRATIVE: wound CDI Urinary Catheter Management^: F: Cath Placed During This Visit: yes Urinary Catheter Date of Insertion: 04/09/21 Urinary Catheter Time of Insertion: 07:30 Data : 04/11/21 02:01 04/11/21 02:01 A&P Assessment and plan (1) S/P spinal surgery: Status: Acute Attestations Medical Necessity Statement*: pain control Coding Level of Care Code Acute 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
[2021-04-12] MEDS: morphine IR 15 mg Tablet PO ×2 (12:45→20:33)
[2021-04-12] MEDS: magnesium hydroxide 30 mL UDC PO (12:47)
--- NOTE | 2021-04-12 13:16 | PM.PN ---
Subjective Subjective: Interval history: No events overnight. Continues to complain of pain. Complaining of muscle cramps in left thigh. Otherwise medically stable. Denies any nausea vomiting, headache. Vitals/I&O/Wt Last Vital Signs Temp 98.4 F 04/12/21 11:52 Pulse 74 04/12/21 11:52 Resp 14 04/12/21 12:45 BP 125/68 04/12/21 11:52 Pulse Ox 98 04/12/21 12:45 04/11/21 04/12/21 04/12/21 22:59 06:59 14:59 Intake Total 2012 600 / 2613 1400 / 1400 Balance 2012 600 / 2613 1400 / 1400 Physical Exam Narrative: EXAM NARRATIVE: General: No acute distress, AO x3, comfortable HEENT: PERRLA, pupils bilaterally equal and reactive Chest: Normal vesicular breath sounds bilaterally, good equal air entry bilaterally, occasional rhonchi CVS: S1-S2 regular, no murmurs, no tachycardia, no gallops, no rubs Abdomen: Soft, nontender, no organomegaly, bowel sounds present, morbidly obese Neuro: No focal deficits, no facial deformity, AO x3, bilateral plantars downgoing Urinary Catheter Management^: F: Cath Placed During This Visit: yes Urinary Catheter Date of Insertion: 04/09/21 Urinary Catheter Time of Insertion: 07:30 Data : 04/11/21 02:01 04/11/21 02:01 A&P Assessment and plan (1) S/P spinal surgery: Status: Acute (2) Hypertension: Status: Acute (3) Encounter for long-term opiate analgesic use: Status: Chronic Additional A&P Information Postoperative care: Anticoagulation, physical therapy, pain management, perioperative antibiotics as per the surgical team. Incentive spirometry. Pain control. Continue with morphine SR 30 milligrams every 8 hourly to avoid drug withdrawals. Patient takes for morphine 15 mg q8h, morphine 5 mg q8h. Further pain management as per orthopedic team Flexeril for muscle spasm. Hypertension: Goal blood pressure less than 140/90 mmHg. Blood pressure better today. Continue with Enalpril to 20 mg daily, C/w home dose of HTCZ. Echo results appreciated. Continue to monitor blood pressures daily. If blood pressure elevated will uptitrate the medications. Hypoxia: Resolved. Patient would most likely benefit from sleep study as an outpatient. RikkioNebs as needed. Continue other chronic medication including duloxetine, pain medication including morphine, sumatriptan as needed. Full code. Regular diet Lovenox for DVT PPx Attestations Medical Necessity Statement*: As per primary team Time Spent in Patient Care: Greater than 35 minutes (>than 50% of time spent in counselling and/or direct pt care on unit). Coding Level of Care Code Acute Couture Alterations Dressmaker for Chg Fwd Diagnoses S/P spinal surgery Z98.890 Hypertension I10 Encounter for long-term opiate analgesic use Z79.891
[2021-04-13] VITALS (7 sets, daily range): BP systolic 119–156; BP diastolic 70–97; PULSE 82–86; RESP 14–20; TEMP 36.3–36.9; O2SAT 95–96
[2021-04-13] MEDS: morphine ER (12 HR) 30 mg tablet PO ×2 (00:12→09:33)
[2021-04-13] MEDS: acetaminophen 325 mg Tablet 650 MG PO (03:48)
[2021-04-13] MEDS: enoxaparin 40 mg/0.4 mL Syringe SUBCUT (05:51)
[2021-04-13] MEDS: ascorbic acid 500 mg Tablet PO (09:33)
[2021-04-13] MEDS: sennosides 8.6 mg Tablet PO (09:33)
[2021-04-13] MEDS: duloxetine 60 mg Capsule PO (09:33)
[2021-04-13] MEDS: ferrous gluconate 324 mg Tablet PO (09:33)
[2021-04-13] MEDS: docusate sodium 100 mg Capsule PO (09:33)
[2021-04-13] MEDS: hydroCHLOROthiazide 25 mg Tablet 12.5 MG PO (09:33)
[2021-04-13] MEDS: cyclobenzaprine 10 mg Tablet 5 MG PO (09:34)
--- NOTE | 2021-04-13 09:58 | P.DS_ITS ---
Discharge Providers Date of Admission: 04/09/21 14:41 Date of Discharge: April 13, 2021 Attending Provider at Admission: Tl Treviño MD Attending Provider at Discharge: Chauncey García DO Primary Care Provider: AYAAN Styles Diagnoses at Discharge Discharge Diagnosis (1) S/P spinal surgery: Status: Acute Permanent problem details: POD #3 PLIF L5/S1 and thoracic hardware reoval (2) Hypertension: Status: Acute (3) Encounter for long-term opiate analgesic use: Status: Chronic Reason for Visit Reason for Visit: plif/hardware removal Hospital Course Hospital Course Patient is admitted on 04/09. She will be discharged on 04/13/2021. She had removal of hardware and a L5-S1 PLIF. Her stay was due to pain control. This morning her pain was controlled she is having bowel movements Physical Exam Urinary Catheter Management^: F: Cath Placed During This Visit: yes Urinary Catheter Date of Insertion: 04/09/21 Urinary Catheter Time of Insertion: 07:30 Discharge Data Data Completed and Pending: Completed Studies During Hospitalization Category Date Time Status XR chest 1V hemal ble [id number] Routine Exams 04/09/21 17:01 Completed XR lumbar spine 2 -3V* [id number] Routine Exams 04/09/21 Completed CV echo complete* [id number] Routine Ultrasound 04/10/21 17:12 Completed Vitals: Last Vital Signs Temp 97.6 F 04/13/21 07:45 Pulse 82 04/13/21 07:45 Resp 16 04/13/21 07:45 BP 156/97 04/13/21 07:45 Pulse Ox 96 04/13/21 07:45 Discharge Plan Discharge Patient Disposition: Home Condition: Stable Prescriptions: New enalapril maleate 10 mg Tablet 20 mg PO DAILY Qty: 60 RF: 0 hydrochlorothiazide 25 mg Tablet 12.5 mg PO DAILY Qty: 30 RF: 0 morphine 30 mg capsule, ER multiphase 24 hr 30 mg PO BID 10 Days Qty: 20 RF: 0 morphine 15 mg tablet 15 mg PO Q8H PRN (Reason: pain) 10 Days Qty: 30 RF: 0 Continued ascorbic acid (vitamin C) [Vitamin C] 500 mg capsule, extended release 500 mg PO Q12H RF: 0 Adult One Daily Multivitamin 0.4 mg tablet 1 tab PO DAILY RF: 0 senna 8.6 mg capsule 8.6 mg PO BID PRN (Reason: Constipation) RF: 0 Azo Cranberry 250 mg tablet,chewable 250 mg PO TID RF: 0 nitrofurantoin monohyd/m-cryst [Macrobid] 100 mg capsule 100 mg PO BID Qty: 20 RF: 1 methenamine hippurate 1 gram tablet 1 g PO BID Qty: 180 RF: 3 sumatriptan succinate 100 mg tablet See Rx Instructions PO .COMPLEX Qty: 9 RF: 1 duloxetine [Cymbalta] 60 mg capsule,delayed release(DR/EC) 60 mg PO QDAY Qty: 90 RF: 1 morphine 15 mg tablet 15 mg PO TID PRN (Reason: pain) 30 Days Qty: 90 RF: 0 morphine 15 mg tablet 15 mg PO TID PRN (Reason: pain) 30 Days Qty: 90 RF: 0 morphine 30 mg tablet extended release 30 mg PO Q8H 30 Days Qty: 90 RF: 0 morphine 30 mg tablet extended release 30 mg PO Q8H 30 Days Qty: 90 RF: 0 cyclobenzaprine 5 mg tablet 5 mg PO BID PRN (Reason: muscle spasm) 90 Days Qty: 180 RF: 3 Discontinued enalapril-hydrochlorothiazide 10-25 mg tablet 1 tab PO QAM Qty: 30 RF: 11 Discharge Orders: Discharge Order (Routine); Ordered 04/13/21 Ordered By: Chauncey García Other Ambulatory Orders: DME: Walker (Order) Location: None Selected Ordered By: Tl Treviño Referrals: [facility] [place] Home Care ([facility]) [Outside] ([facility] Home Health physical therapy will be calling you to set up a time do admit you to [facility] services. Right now the plan is to admit you on April 15. If you have any questions or concerns please call them at [phone].) Discharge Diet: Advance as tolerated Discharge Activity: Limit activity as instructed Patient Instructions: Opioid Safety Activity Restrictions/Additional Instructions: Thank you for [facility] for your care! The following is a list of instructions, from your provider, to follow upon your discharge to ensure you have the optimal recovery from your recent injury orsurgery. Follow-up care is a garces part of your treatment and safety. Be sure to make and go to all appointments, and call your doctor if you are having problems. If you do not already have a follow-up appointment made, call Dr. García office in the next 1-3 days to make follow up appointment for 1 weeks (this wednesday) at [phone]. It is also a good idea to know your test results and keep a list of the medicines you take. Medications will be prescribed for you at your provider's discretion. These medications are to be used as instructed; if they are taken more often that prescribed they will not be refilled early and in most cases will not be refilled at all. > When a refill is needed,you should contact veto sanchez 2-3 business days before your prescription runs out. Medications will NOT be refilled by consumer relations specialist providers after hours! > Many pain medications contain Tylenol (Acetaminophen). Do not consume more than 4,000 mg of Tylenol per day in total with any combination ofmedications. > Pain medications can cause constipation. Please use an over the counter stool softener as directed, while taking pain medications. Consulty our local pharmacist with questions or recommendations on stool softeners. If constipation persists, contact our office or your primary care provider. > While under our care,you are not to receive pain medications or other controlled substances from any other provider unless our office is notified and approves. Any attempts to do so will result in refusal to prescribe any further pain medications and possible dismissal from our practice. ? Keep dressin on at all times ? Showering is permitted, however we ask that you do not take a bath, sit in a whirlpool / Jacuzzi, or go swimming for 1 month. For only the first 2 days after surgery, lt wilt be necessary for you to cover your wound/dressing with plastic and tape to keep it dry. ? Walking is essential for the healing process after surgery. We would like you to slowly advance your walking. This should be done on relatively flat clear ground (inside or out) or can be done on a treadmill. Remember this goal does not have to happen all at once, slowly increase your distance and duration. This can be broken into more more than one walk per day as tolerated. Patients who walk as directed after surgery rarely require Physical Therapy. In the unlikely event this issue arises your provider will direct hospital staff to make the appropriate arrangements. ? No lifting over 5 pounds {a gallon of milk) or bending/twisting until further notice. Each of these activities places an unnecessary amount of stress onto the body and can impede the delicate healing process. > Instead of bending at the waist, keep your back straight and bend at the knees. > Instead of twisting your torso, keep your back straight and turn your entire body with your feet. ? You may sleep in any position which makes you comfortable. Many patients find comfort sleeping in a reclining chair. It is not abnormal to have difficulty sleeping for the first several weeks following your surgery. We recommend trying Benadry! or Tylenol PM as directed to help with your sleeping difficulties. Both medications are over the counter and available withoutprescription. ? NO SMOKING!!! Smoking dramatically increases the probability of developing postoperative wound infections. ? Common complaints after lumbar and/or thoracic spine surgery include, but are not limited to: numbness and/or tingling in the legs, pain around the incision and surrounding tissues, muscle spasms, or stiffness of the middle to low back. Contact our office if these symptoms persist or if an acute change occurs. ? No driving for the first 3-5days, and not while taking narcotics [] until seen at your follow-up appointment and cleared. There are no restrictions for riding on short trips, however if you take a longer trip, arrangements should be made to make regular stops to get out of the vehicle and stretch . ? Swelling is an unfortunate event that will take place with any surgery and is the primary source of your postoperative discomfort. While walking and regular approved activities helps control inflammation, there are additional steps you can take to minimizeswelling. > Place ice over the surgical site and surrounding tissue for twenty minutes, followed by applying a low/medium heat (heating pad) for an additional twenty minutes every 1-2 hours as needed for painrelief. > You may use of over the counter anti-inflammatory medications (Ibuprofen, Motrin, Aleve, Advil, etc) as directed on the package label. These types of medicines wm significantly reduce the amount of discomfort you experience after surgery from swelling. It should be noted that if you have and allergy to any of these medications, or a history of ulcers or kidney disease you should consult you primary care provider prior to starting these medications. Discharge Attestations Time Spent in Discharge Care*: less than 30 min Quality Metrics Clinical Quality Measures During this hospital stay, did patient experience: None Coding Level of Care Code Acute Chg FW DC note Diagnoses S/P spinal surgery Z98.890 Hypertension I10 Encounter for long-term opiate analgesic use Z79.891
--- NOTE | 2021-04-13 11:33 | P.PN_ITS ---
Subjective Subjective: Interval history: No events overnight. Continues to complain of pain. Complaining of muscle cramps in left thigh. Otherwise medically stable. Denies any nausea vomiting, headache. Vitals/I&O/Wt Last Vital Signs Temp 97.6 F 04/13/21 07:45 Pulse 82 04/13/21 07:45 Resp 16 04/13/21 07:45 BP 156/97 04/13/21 07:45 Pulse Ox 96 04/13/21 07:45 04/12/21 04/13/21 04/13/21 22:59 06:59 14:59 Intake Total 120 / 1920 240 / 2160 240 / 240 Balance 120 / 1920 240 / 2160 240 / 240 Physical Exam Narrative: EXAM NARRATIVE: General: No acute distress, AO x3, comfortable HEENT: PERRLA, pupils bilaterally equal and reactive Chest: Normal vesicular breath sounds bilaterally, good equal air entry bilaterally, occasional rhonchi CVS: S1-S2 regular, no murmurs, no tachycardia, no gallops, no rubs Abdomen: Soft, nontender, no organomegaly, bowel sounds present, morbidly obese Neuro: No focal deficits, no facial deformity, AO x3, bilateral plantars downgoing Urinary Catheter Management^: F: Cath Placed During This Visit: yes Urinary Catheter Date of Insertion: 04/09/21 Urinary Catheter Time of Insertion: 07:30 Data : 04/11/21 02:01 04/11/21 02:01 A&P Assessment and plan (1) S/P spinal surgery: Status: Acute (2) Hypertension: Status: Acute (3) Encounter for long-term opiate analgesic use: Status: Chronic Additional A&P Information Postoperative care: Anticoagulation, physical therapy, pain management, perioperative antibiotics as per the surgical team. Incentive spirometry. Pain control. Continue with morphine SR 30 milligrams every 8 hourly to avoid drug withdrawals. Patient takes for morphine 15 mg q8h, morphine 5 mg q8h. Further pain management as per orthopedic team Flexeril for muscle spasm. Hypertension: Goal blood pressure less than 140/90 mmHg. Blood pressure better today. Continue with Enalpril to 20 mg daily, C/w home dose of HTCZ. Echo results appreciated. Continue to monitor blood pressures daily. If blood pressure elevated will uptitrate the medications. Hypoxia: Resolved. Patient would most likely benefit from sleep study as an outpatient. DuoNebs as needed. Continue other chronic medication including duloxetine, pain medication in cluding morphine, sumatriptan as needed. Full code. Regular diet Lovenox for DVT PPx. Patient to be discharged from medicine point of view. She should follow-up with her primary care provider within the next 1 week with a blood pressure diary. She is to take her blood pressure twice a day. Further adjustment of antihypertensive should be done at her primary care's office. Attestations Medical Necessity Statement*: Per primary team Time Spent in Patient Care: Greater than 35 minutes (>than 50% of time spent in counselling and/or direct pt care on unit) . 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
[2021-04-13] MEDS: morphine IR 15 mg Tablet PO (13:45)
--- NOTE | 2021-04-13 15:06 | PC.NURSE ---
PT HAS DONE WELL FOR ME TO DAY. PT IS AMBULATING BETTER. PT DOES NOT HAVE IV ACCESS AND THAT IS OK PER DR BELL; PT WAS REFUSING TO BE STUCK AGAIN ANYWAYS. PT IS STILL HAVING PAIN BUT IS DOING BETTER. PT WILL DISCHARGE TODAY PER DR BELL. PT IS READY TO GO HOME. PTS BELONGINGS WERE GATHERED. DISCHARGE PAPERWORK GONE OVER WITH PT. ALL QUESTIONS ANSWERED. THIS NURSE WHEELED PT OUT AND SHE WAS SAFELY DISCHARGED AT 0230.
== END 2021-04-13 14:30 | disposition home or self-care (01) ==
LOC: MEDSURG 14:43
PROVIDERS: Admitting Provider Student in an Organized Health Care Education/Training Program; PCP Nurse Practitioner Family; Visit Provider Orthopaedic Surgery
PROC: (CPT 22612; principal; 2021-04-09 07:00)
PROC: (CPT 20930; 2021-04-09 07:00)
DX: M43.17 Spondylolisthesis, lumbosacral region (principal); I10 Essential (primary) hypertension; Z79.891 Long term (current) use of opiate analgesic; Z98.1 Arthrodesis status; E66.01 Morbid (severe) obesity due to excess calories; Z68.36 Body mass index [BMI] 36.0-36.9, adult; Z82.49 Family history of ischemic heart disease and other diseases of the circulatory system; Z83.3 Family history of diabetes mellitus
CPT/HCPCS: 20930; 20939; 22612; 22614 ×2; 22842; 22852; 61783; 63047; 36415; 51702; 71045; 72100; 76000; 80053; 80061; 83036; 83540; 83550; 83880; 84443; 85025; 93005; 93306; 96365; 96372; 97116; 97161; 97530; C1713; C9359; G0378; J1100; J1170; J1644; J1650; J1885; J1940; J2370; J2405; J2704; J3010; J3370; J3490; J7030

== ENCOUNTER → 2021-06-13 09:54 | Outpatient (BNVA) | payer MEDICARE, SELFPAY | PROVIDERS: PCP Nurse Practitioner Family; Visit Provider Nurse Practitioner | DX: G89.29 Other chronic pain (principal); M54.41 Lumbago with sciatica, right side; M43.06 Spondylolysis, lumbar region; M51.36 Other intervertebral disc degeneration, lumbar region; M50.30 Other cervical disc degeneration, unspecified cervical region; M50.020 Cervical disc disorder with myelopathy, mid-cervical region, unspecified level; M43.12 Spondylolisthesis, cervical region; B02.29 Other postherpetic nervous system involvement; Z98.890 Other specified postprocedural states; Z79.891 Long term (current) use of opiate analgesic | CPT/HCPCS: 99213 ==

== ENCOUNTER → 2021-06-17 14:32 | Outpatient (BNVA) | payer MEDICARE, SELFPAY | PROVIDERS: PCP Nurse Practitioner Family; Visit Provider Orthopaedic Surgery | DX: Z98.890 Other specified postprocedural states (principal); M43.17 Spondylolisthesis, lumbosacral region | CPT/HCPCS: 72100 ==

== ENCOUNTER 2021-07-17 08:54 | Outpatient (CLI) | payer MEDICARE, SELFPAY ==
--- NOTE | 2021-07-17 08:58 | FL_ITS ---
WS: [id number] DOUBLE CONTRAST UPPER GI EXAMINATION HISTORY: K21.9 - Gastro-esophageal reflux disease without esophagitis COMPARISON: None available. FLUOROSCOPY TIME: 1.6 minutes. Patient drank the barium mixture without difficulty. Very minimal esophageal dysmotility within the distal esophagus with no esophageal narrowing. Barium mixture traversed normally throughout the esophagus. No filling defects within the stomach. Du odenal bulb was normally distensible and pliable. No gastroesophageal reflux No hiatal hernia was demonstrated on this exam. FL/FL upper GI w air* [id number] IMPRESSION: Minimal esophageal dysmotility distally. Otherwise negative.
== END 2021-07-17 08:55 | disposition home or self-care (01) ==
PROVIDERS: PCP Nurse Practitioner Family; Visit Provider Surgery
DX: K21.9 Gastro-esophageal reflux disease without esophagitis (principal)
CPT/HCPCS: 74246

== ENCOUNTER → 2021-08-08 09:59 | Outpatient (BNVA) | payer MEDICARE, SELFPAY | PROVIDERS: PCP Nurse Practitioner Family; Visit Provider Anesthesiology | DX: G89.29 Other chronic pain (principal); M54.41 Lumbago with sciatica, right side; M43.17 Spondylolisthesis, lumbosacral region; M51.36 Other intervertebral disc degeneration, lumbar region; M50.30 Other cervical disc degeneration, unspecified cervical region; M50.020 Cervical disc disorder with myelopathy, mid-cervical region, unspecified level; M43.12 Spondylolisthesis, cervical region; Z98.1 Arthrodesis status; Z98.890 Other specified postprocedural states; Z79.891 Long term (current) use of opiate analgesic | CPT/HCPCS: 99214 ==

== ENCOUNTER → 2021-10-14 10:20 | Outpatient (BNVA) | payer BC, MEDICARE, SELFPAY | PROVIDERS: PCP Nurse Practitioner Family; Visit Provider Anesthesiology | DX: G89.29 Other chronic pain (principal); M51.36 Other intervertebral disc degeneration, lumbar region; M54.41 Lumbago with sciatica, right side; M43.17 Spondylolisthesis, lumbosacral region; M50.30 Other cervical disc degeneration, unspecified cervical region; M50.020 Cervical disc disorder with myelopathy, mid-cervical region, unspecified level; M43.12 Spondylolisthesis, cervical region; Z98.1 Arthrodesis status; Z98.890 Other specified postprocedural states; Z79.891 Long term (current) use of opiate analgesic | CPT/HCPCS: 99214 ==

== ENCOUNTER 2021-10-22 17:50 | Observation (INO) | payer BC, MEDICARE, SELFPAY ==
--- NOTE | 2021-10-22 18:15 | CTR_ITS ---
PROCEDURE INFORMATION: Exam: CT Abdomen And Pelvis Without Contrast Exam date and time: 10/22/2021 6:15 PM Age: 56 years old Clinical indication: Pain; Other: L flank; Prior surgery; Surgery date: 6+ months; Surgery type: Lithotripsy, gb, uretal stents, lumbar, x 2; Additional info: Left flank pain with n/v TECHNIQUE: Imaging protocol: Computed tomography of the abdomen and pelvis without contrast. Radiation optimization: All CT scans at this facility use at least one of these dose optimization techniques: automated exposure control; mA and/or kV adjustment per patient size (includes targeted exams where dose is matched to clinical indication); or iterative reconstruction. COMPARISON: CT Abdomen/Pelvis Renal [id number] 08/09/2018 1:13 PM RADIATION DOSE METRICS: Total DLP (mGy-cm): 1775.29 FINDINGS: Liver: Normal. No mass. Gallbladder and bile ducts: Cholecystectomy. Mild prominence of the bile ducts is consistent with reservoir effect. Pancreas: Normal. No ductal dilation. Spleen: Normal. No splenomegaly. Adrenal glands: Normal. No mass. Kidneys and ureters: 8 mm obstructing calculus in the left ureter at the level of the iliac vessels. 6 mm calculus in the distal left ureter just proximal to the urinary bladder. Moderate-severe left hydronephrosis and columning of the left ureter to the level of the 1st stone. Left perinephric and periureteral stranding. 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 No right ureteral calculus or hydronephrosis. Stomach and bowel: Unremarkable. No obstruction. No mucosal thickening. Appendix: The appendix is visualized and is normal. Intraperitoneal space: Unremarkable. No free air. No significant fluid collection. Vasculature: Unremarkable. No abdominal aortic aneurysm. Lymph nodes: Subcentimeter retroperitoneal lymph nodes are most likely reactive. Urinary bladder: Unremarkable as visualized. Reproductive: The uterus and ovaries are unremarkable. Bones/joints: Posterior mechanical fusion of L4-S1. Anterior subluxation of L5 on S1. L5 decompressive laminectomy. No acute fracture. Degenerative spine. Soft tissues: Unremarkable. Other findings: Small right Bartholin's gland cyst. CT/CT kidney stone [id number] IMPRESSION: 1. Obstructing 8 mm calculus in the left ureter at the level of the iliac vessels, and additional 6 mm calculus in the distal left ureter. Moderate-severe left hydronephrosis. 2. Nephrocalcinosis with numerous tiny bilateral renal calculi.
[2021-10-22 18:31] VITALS: BP 168/103; PULSE 81; RESP 22; TEMP 36.1; O2SAT 97; BMI 36.3
--- NOTE | 2021-10-22 18:54 | W.ED.FEMALGU ---
HPI - Female Genitourinary General: Chief complaint: Urogenital-Female Stated complaint: kidney Stones Time Seen by Provider: 10/22/21 18:40 Source: patient Mode of arrival: ambulatory Limitations: no limitations History of Present Illness: HPI Narrative: 56-year-old female who states she started having severe left flank pain at 11:00 today. States she had multiple episodes of vomiting with severe pain she rates it 9 out of 10. States she had kidney stones in the past and this feels the same. She states she had multiple in the past also had multiple she has not been able to pass has had to have lithotripsy. She denies any diarrhea but has had multiple episodes of vomiting. She denies any worsening improving factors for her pain. Associated symptoms: Reports nausea; Deny headache(s) Review of Systems Const: Denies: fever(s), chills, body aches or change in appetite Eyes: Denies: blurry vision or eye discomfort ENMT: Denies: throat pain or dental pain Card: Denies: chest pain Resp: Denies: dyspnea GI: Reports: nausea and vomiting : Reports: flank pain Musc: Denies: neck pain or back pain Skin/Breast: Denies: rash Neuro: Denies: headache(s) Psych: Denies: depression Von/Lymph: Denies: easy bruising All/Imm: Denies: urticaria PFSH ED PFSH: Medical History Cervical disc disorder with myelopathy of mid-cervical region Chronic headaches Chronic thoracic spine pain Degenerative disc disease, cervical Encounter for long-term opiate analgesic use Hypertension Lumbar degenerative disc disease Lumbar spondylolysis Spondylolisthesis of cervical region Spondylolisthesis of lumbosacral region Ureteral calculi Urolithiasis Surgical History History of ankle surgery History of thoracic spinal fusion S/P section S/P cholecystectomy S/P endoscopy upper and lower S/P fusion of thoracic spine S/P spinal fusion Family History Mother Cancer breast- at 87 Hypertension Father Cancer prostate- at 93 Diabetes Brother Chronic kidney disease (CKD) kidney stones Sister No problems noted. Social History Second hand smoke exposure: No Alcohol intake: never Marital status: / Current occupational status: employed History of recent travel: No Physical Exam Const: COMMON NORMALS: patient oriented x3 and healthy appearing OTHER: in distress do to pain HENMT: COMMON NORMALS: normocephalic and atraumatic HEAD & SCALP: normocephalic and atraumatic Eye: COMMON NORMALS: Equal, round and reactive pupils present and EOMs intact bilaterally PUPIL: Yes Equal, round and reactive pupils present Neck/C-Spine: COMMON NORMALS: full ROM and supple Chest: COMMONS NORMALS: normal inspection of the chest and normal palpation of entire chest wall Resp: COMMON NORMALS: normal respiratory effort, No retractions, No use of accessory muscles and clear to auscultation bilaterally AUSCULTATION: clear to auscultation bilaterally Cardio: COMMON NORMALS: regular rate, regular rhythm and No murmurs present (Cardio) RATE: regular rate RHYTHM: regular rhythm GI: COMMON NORMALS: Normal to inspection, nondistended, normoactive bowel sounds present, Soft to palpation, non-tender and no masses PALPATION: Yes Soft to palpation Extremity: COMMON NORMALS: normal to inspection and full ROM Neuro: COMMON NORMALS: patient oriented x3, moves all extremities and no focal motor deficits Psych: COMMON NORMALS: mental status grossly normal, Normal thought process present and cooperative THOUGHT PROCESS: Normal thought process present Skin: COMMON NORMALS: no rashes or lesions noted and no wounds GENERAL SKIN EXAM: no rashes or lesions noted Course Vital Signs: Vital signs: Vital Signs Temperature 97.0 F L 10/22/21 18:31 Pulse Rate 81 10/22/21 18:31 Respiratory Rate 22 H 10/22/21 18:31 Blood Pressure 168/103 10/22/21 18:31 Pulse Oximetry 97 10/22/21 18:31 MDM - Female MDM Narrative: Medical decision making narrative: Patient presents here with obstructing kidney stone that is unlikely to pass also possible acute cystitis I spoke to Dr. Marie with plan to admit for procedure tomorrow morning patient's pain is improved she has been stable in the ER. Lab Data: Labs: Lab Results 10/22/21 10/22/21 10/22/21 18:54 19:21 19:21 WBC 10.4 10^3/uL H 10 ^3/uL (4.0-10.0) RBC 4.80 10^6/uL 10^6 /uL (4.1-5.3) Hgb 13.0 g/dL g/dL (11.5-15.3) Hct 40.7 % % (37.0-47.0) MCV 84.8 fl fl (81-99) MCH 27.1 pg L pg (28.0-34.0) MCHC 31.9 g/dL g/dL (30.0-36.0) RDW 13.3 % % (12.1-15.1) Plt Count 244 10^3/cmm 10^3 /cmm (130-400) MPV 10.3 fL fL (7.4-10.4) Neut % (Auto) 82.0 % % Lymph % (Auto) 12.6 % % [place] % (Auto) 3.7 % % Eos % (Auto) 1.2 % % Baso % (Auto) 0.3 % % Neut # (Auto) 8.55 10^3/uL H 10 ^3/uL (1.8-7.7) Lymph # (Auto) 1.3 10^3/uL 10^3/ uL (0.8-4.8) [place] # (Auto) 0.4 10^3/uL 10^3/ uL (0.2-0.9) Eos # (Auto) 0.1 10^3/uL 10^3/ uL (0.0-0.8) Baso # (Auto) 0.0 10^3/uL 10^3/ uL (0.0-0.1) Nucleated RBC % (a uto) 0 % % Nucleated RBCs # 0.0 /100WBC /100W BC Sodium 138 mmol/L mmol/L (136-145) Potassium 3.7 mmol/L mmol/L (3.5-5.1) Chloride 100 mmol/L mmol/L (98-107) Carbon Dioxide 28 mmol/L mmol/L (22-29) Anion Gap 13.7 (5-19) BUN 10 mg/dL mg/dL (6-20) Creatinine 0.6 mg/dL mg/dL (0.5-0.9) GFR Calculation 103.0 mL/min mL/m in (90-130) Glucose 137 mg/dL H mg/dL (65-115) Calculated Osmolal ity 287 mOsm/kg mOsm/ kg (285-295) Calcium 8.9 mg/dL mg/dL (8.5-10.5) Total Bilirubin 0.2 mg/dL mg/dL (0.15-1.2) AST 17 U/L U/L (0-32) ALT 19 U/L U/L (0-33) Alkaline Phosphata se 127 IU/L H IU/L (35-105) Total Protein 7.7 g/dL g/dL (6.6-8.7) Albumin 4.2 g/dL g/dL (3.5-5.2) Globulin 3.5 g/dL g/dL (1.3-4.6) Urine Color Yellow (Yellow) Urine Appearance Hazy A (CLEAR) Urine pH 7 (5-7) Ur Specific Gravit y 1.015 (1.005-1.030) Urine Protein 3+ H (Negative) Urine Glucose (UA) Norm (Normal) Urine Ketones Negative (Negative) Urine Blood 3+ H (Negative) Urine Nitrate Negative (Negative) Urine Bilirubin Neg (Negative) Urine Urobilinogen Norm mg/dL mg/dL (Negative) Ur Leukocyte Linda ase 2+ H (Negative) Urine RBC 40-50 /hpf H /hpf (0-2) Urine WBC Too numerous to c nt /hpf H /hpf (0-5) Ur Squamous Epith Cells 0-4 /hpf H /hpf (0-5) Amorphous Sediment Not Reportable Urine Bacteria 3+ /hpf H /hpf (NONE) Imaging Data: CT Abd/Pel: Attestation: I personally reviewed and interpreted this imaging study as follows: Radiologist's impression: [facility] [address] [place] [address] CT Scan Report Signed Patient: Gregoria Chu Unit #: [id number] : 1965 Age/Sex: 56 / F ADM Date: 10/22/21 Loc: ER Room/Bed: Attending Dr: Ordering Provider/Ordering MD: Ever Kaur MD Date of Service: 10/22/21 Procedure(s): CT kidney stone [id number] Accession Number(s): [id number] Report Number: [id number] PROCEDURE INFORMATION: Exam: CT Abdomen And Pelvis Without Contrast Exam date and time: 10/22/2021 6:15 PM Age: 56 years old Clinical indication: Pain; Other: L flank; Prior surgery; Surgery date: 6+ months; Surgery type: Lithotripsy, gb, uretal stents, lumbar, x 2; Additional info: Left flank pain with n/v TECHNIQUE: Imaging protocol: Computed tomography of the abdomen and pelvis without contrast. Radiation optimization: All CT scans at this facility use at least one of these dose optimization techniques: automated exposure control; mA and/or kV adjustment per patient size (includes targeted exams where dose is matched to clinical indication); or iterative reconstruction. COMPARISON: CT Abdomen/Pelvis Renal [id number] 08/09/2018 1:13 PM RADIATION DOSE METRICS: Total DLP (mGy-cm): 1775.29 FINDINGS: Liver: Normal. No mass. Gallbladder and bile ducts: Cholecystectomy. Mild prominence of the bile ducts is consistent with reservoir effect. Pancreas: Normal. No ductal dilation. Spleen: Normal. No splenomegaly. Adrenal glands: Normal. No mass. Kidneys and ureters: 8 mm obstructing calculus in the left ureter at the level of the iliac vessels. 6 mm calculus in the distal left ureter just proximal to the urinary bladder. Moderate-severe left hydronephrosis and columning of the left ureter to the level of the 1st stone. Left perinephric and periureteral stranding. 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 No right ureteral calculus or hydronephrosis. Stomach and bowel: Unremarkable. No obstruction. No mucosal thickening. Appendix: The appendix is visualized and is normal. Intraperitoneal space: Unremarkable. No free air. No significant fluid collection. Vasculature: Unremarkable. No abdominal aortic aneurysm. Lymph nodes: Subcentimeter retroperitoneal lymph nodes are most likely reactive. Urinary bladder: Unremarkable as visualized. Reproductive: The uterus and ovaries are unremarkable. Bones/joints: Posterior mechanical fusion of L4-S1. Anterior subluxation of L5 on S1. L5 decompressive laminectomy. No acute fracture. Degenerative spine. Soft tissues: Unremarkable. Other findings: Small right Bartholin's gland cyst. CT/CT kidney stone [id number] IMPRESSION: 1. Obstructing 8 mm calculus in the left ureter at the level of the iliac vessels, and additional 6 mm calculus in the distal left ureter. Moderate-severe left hydronephrosis. 2. Nephrocalcinosis with numerous tiny bilateral renal calculi. Dictated By: Christopher Early Signed By: Christopher Early Signed Date/Time: 10/22/211853 DD/ 14 Discharge Plan Discharge Patient Disposition: Admitted As Inpatient Clinical Impression: Hydronephrosis with renal and ureteral calculous obstruction, Acute cystitis Condition: Stable Prescriptions: No Action ascorbic acid (vitamin C) [Vitamin C] 500 mg capsule, extended release 500 mg PO Q12H RF: 0 Adult One Daily Multivitamin 0.4 mg tablet 1 tab PO DAILY RF: 0 senna 8.6 mg capsule 8.6 mg PO BID PRN (Reason: Constipation) RF: 0 Azo Cranberry 250 mg tablet,chewable 250 mg PO TID RF: 0 nitrofurantoin monohyd/m-cryst [Macrobid] 100 mg capsule 100 mg PO BID Qty: 20 RF: 1 methenamine hippurate 1 gram tablet 1 g PO BID Qty: 180 RF: 3 morphine 15 mg tablet 15 mg PO TID PRN (Reason: pain) 30 Days Qty: 90 RF: 0 morphine 15 mg tablet 15 mg PO TID PRN (Reason: pain) 30 Days Qty: 90 RF: 0 morphine 30 mg tablet extended release 30 mg PO Q12H 30 Days Qty: 60 RF: 0 morphine 30 mg tablet extended release 30 mg PO Q12H 30 Days Qty: 60 RF: 0 duloxetine [Cymbalta] 60 mg capsule,delayed release(DR/EC) 60 mg PO QDAY 30 Days Qty: 30 RF: 1 cyclobenzaprine 5 mg tablet 5 mg PO BID PRN (Reason: muscle spasm) 30 Days Qty: 180 RF: 1 naproxen sodium [Aleve] 220 mg tablet 220 mg PO BID PRNRF: 0 cholecalciferol (vitamin D3) 25 mcg (1,000 unit) capsule 25 mcg PO DAILY RF: 0 lidocaine [Lidoderm] 5 % adhesive patch,medicated 3 patch topical DAILY Qty: 90 RF: 1 triamcinolone acetonide 0.1 % cream 1 applic topical BID Qty: 30 RF: 0 doxycycline hyclate 100 mg tablet 100 mg PO BID RF: 0 albuterol 90 mcg/actuation aerosol inhalation RF: 0 enalapril maleate 10 mg Tablet 20 mg PO DAILY Qty: 60 RF: 0 hydrochlorothiazide 25 mg Tablet 12.5 mg PO DAILY Qty: 30 RF: 0 Referrals: Lisha Martino FNP [Primary Care Provider] - Coding Level of Care Code ED 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
[2021-10-22] MEDS: HYDROmorphone 1 mg/mL INJ 1 mL IVP (19:16)
[2021-10-22] MEDS: ondansetron 2 mg/ML SDV 2 mL 4 MG IVP (19:16)
[2021-10-22] MEDS: sodium chloride 0.9% 1,000 ML 999 ML IV (19:16)
[2021-10-22 19:25] LABS: Urine Appearance Hazy (CLEAR); Urine Color Yellow (Yellow)
[2021-10-22 19:26] LABS: Add Urine Microscopic? YES; Bilirubin Urine Neg (Negative); Blood Urine 3+ (Negative); Glucose Urine UA Norm (Normal); Ketones Urine Negative (Negative); Leukocyte Esterase Urine 2+ (Negative); Nitrate Urine Negative (Negative); Protein Urine 3+ (Negative); Specific Gravity, Urine 1.015 (1.005-1.030); Urobilinogen Urine Norm (Negative); pH Urine 7 (5-7)
[2021-10-22 19:27] LABS: Basophils % 0.3 %; Eosinophils # 0.1 10^3/uL (0.0-0.8); Eosinophils % 1.2 %; Hematocrit 40.7 % (37.0-47.0); Lymphocytes # 1.3 10^3/uL (0.8-4.8); Lymphocytes % 12.6 %; Mean Corpuscular HGB Conc 31.9 g/dL (30.0-36.0); Mean Corpuscular Hemoglobin 27.1 pg (28.0-34.0); Mean Corpuscular Volume 84.8 fl (81-99); Mean Platelet Volume 10.3 fL (7.4-10.4); Monocytes # 0.4 10^3/uL (0.2-0.9); Monocytes % 3.7 %; Neutrophils # 8.55 10^3/uL (1.8-7.7); Nucleated Red Blood Cells % 0 %; Platelet Count 244 10^3/cmm (130-400); Red Cell Distribution Width 13.3 % (12.1-15.1); White Blood Count 10.4 10^3/uL (4.0-10.0)
[2021-10-22 19:27] LABS: Add Urine Culture? Yes; Bacteria Urine 3+ /hpf; RBC Urine 40-50 /hpf (0-2); Squamous Epithelial Cell Urine 0-4 /hpf (0-5); WBC Urine TOO NUMEROUS TO CNT /hpf (0-5)
[2021-10-22 19:44] LABS: Alanine Aminotransferase 19 U/L (0-33); Albumin Level 4.2 g/dL (3.5-5.2); Alkaline Phosphatase 127 IU/L (35-105); Anion Gap 13.7 (5-19); Aspartate Amino Transferase 17 U/L (0-32); Blood Urea Nitrogen 10 mg/dL (6-20); Calcium 8.9 mg/dL (8.5-10.5); Carbon Dioxide 28 mmol/L (22-29); Chloride 100 mmol/L (98-107); Globulin 3.5 g/dL (1.3-4.6); Glucose 137 mg/dL (65-115); Osmolality Calculated 287 mOsm/kg (285-295); Potassium 3.7 mmol/L (3.5-5.1); Sodium 138 mmol/L (136-145); Total Bilirubin 0.2 mg/dL (0.15-1.2); Total Protein 7.7 g/dL (6.6-8.7)
[2021-10-22 19:52] LABS: Slide Review Slide Review Perform
[2021-10-22] MEDS: levofloxacin-dextrose 5 % 750 MG/150 ML PREMIX 100 MG IV (20:37)
[2021-10-22 21:47] VITALS: BP 155/100; PULSE 94; RESP 18; TEMP 36.7; O2SAT 99
[2021-10-22 21:48] VITALS: BMI 38.6
[2021-10-22 21:53] VITALS: BP 149/92; PULSE 80; RESP 18; O2SAT 95
[2021-10-22 22:10] VITALS: RESP 18
[2021-10-22] MEDS: morphine 4 mg/mL SDV 1 mL IVP (22:10)
[2021-10-22] MEDS: sodium chloride 0.9% 1,000 ML 100 ML IV (22:40)
[2021-10-22] MEDS: famotidine 20 mg/2 mL INJ IVP (23:28)
[2021-10-23] VITALS (24 sets, daily range): BP systolic 120–163; BP diastolic 73–94; PULSE 69–98; RESP 12–20; TEMP 36.6–37.4; O2SAT 91–100
--- NOTE | 2021-10-23 | SCC_ITS ---
Procedure Done: Cystoscopy, left retrograde ureteropyelogram, LEFT ureteroscopy laser lithotripsy and stent 57.8 seconds of fluoroscopic guidance, for a cumulative dose of 23.03 mGy, was provided to Dr. Marie by the radiology department. C-arm images of the abdomen were saved for the patient's permanent record. [facility]
[2021-10-23] MEDS: morphine 4 mg/mL SDV 1 mL IVP ×2 (02:26→06:39)
--- NOTE | 2021-10-23 06:00 | XRR_ITS ---
PROCEDURE INFORMATION: Exam: XR Abdomen Exam date and time: 10/23/2021 6:00 AM Age: 56 years old Clinical indication: Abdominal pain; Localized; Left; Prior surgery; Surgery type: Gb, lithotripsy, ureter stents, back surgery, ; Additional info: F/u left ureteral stones TECHNIQUE: Imaging protocol: XR of the abdomen. Views: Frontal supine view of the abdomen. 1 View. COMPARISON: CT kidney stone [id number] 10/22/2021 6:23 PM FINDINGS: Gastrointestinal tract: Normal. No bowel dilation. Intraperitoneal space: Surgical clips are present in the right upper quadrant of the abdomen. Organs: A 7 mm calcification projects just below the left sacroiliac joint which may correspond to the left ureteral calculus seen on recent CT scan. The film is under penetrated and stool obscures the kidneys so that the calcifications that were seen in the kidneys on the recent CT scan are difficult to visualize. Bones/joints: The patient has undergone L5-S1 laminectomy and fusion with pedicle screws and rods. XR/XR KUB [id number] IMPRESSION: There is a 7 mm calcification projecting just below the left SI joint consistent with the ureteral calculus seen recent CT scan.
[2021-10-23 06:16] LABS: Anion Gap 13.7 (5-19); Blood Urea Nitrogen 9 mg/dL (6-20); Calcium 8.4 mg/dL (8.5-10.5); Carbon Dioxide 28 mmol/L (22-29); Chloride 101 mmol/L (98-107); Glomerular Filtration Rate 86.2 mL/min (90-130); Glucose 121 mg/dL (65-115); Osmolality Calculated 288 mOsm/kg (285-295); Potassium 3.7 mmol/L (3.5-5.1); Sodium 139 mmol/L (136-145)
[2021-10-23] MEDS: acetaminophen 325 mg Tablet 650 MG PO ×2 (06:39→22:26)
--- NOTE | 2021-10-23 07:30 | P.HP_ITS ---
Providers/Chief Complaint Primary Care Provider: AYAAN Styles Chief Complaint: kidney Stones History of Present Illness Gregoria Chu is a 56 year old female presenting to ED with severe LEFT RENAL colic and CT scan demonstrating 2 ureteral stones. Smaller near UVJ, larger 8mm near pelvic vessels. No evidence of sepsis Poor pain control. Admitted for symptomatic control and likely need for stent and or attempt at endoscopic stone treatment if no passage. Patient well known to me for stone disease. Follow-up KUB this morning showed a larger stone in the same spot. Could not clearly see the lower stone. Still having significant nausea intermittently but responding well to treatment. Also complaining of a headache. Review of Systems Const: Reports: malaise; Denies: fever(s) or chills Eyes: Denies: change in vision ENMT: Denies: hoarseness Card: Denies: chest pain or palpitations Resp: Denies: dyspnea or productive cough GI: Reports: abdominal pain and vomiting : Reports: flank pain and urinary urgency Musc: Reports: back pain; Denies: joint redness Skin/Breast: Denies: rash Neuro: Denies: Slurred speech present or seizure-like activity Psych: Denies: anxiety Endo: Denies: flushing Von/Lymph: Denies: easy bruising or easy bleeding All/Imm: Denies: acute wheezing Medications/Allergies Home Medications Medication Instructions Recorded Confirmed Last Taken Type sennosides 8.6 mg capsule 17.2 mg PO QAM 10/19/19 10/23/21 04/08/21 History cholecalciferol (vitamin D3) 25 25 mcg PO QAM 06/13/21 10/23/21 Unknown History mcg (1,000 unit) capsule naproxen sodium 220 mg tablet 440 mg PO BID PRN 06/13/21 10/23/21 Unknown History cyclobenzaprine 5 mg tablet 5 mg PO BID PRN 30 Days #180 tab 10/14/21 10/23/21 Unknown Rx morphine 15 mg immediate release 15 mg PO TID PRN 30 Days #90 tab 10/14/21 10/23/21 Unknown Rx tablet morphine 15 mg immediate release 15 mg PO TID PRN 30 Days #90 tab 10/14/21 10/23/21 Unknown Rx tablet morphine 30 mg tablet,extended 30 mg PO Q12H 30 Days #60 tab 10/14/21 10/23/21 Unknown Rx release morphine 30 mg tablet,extended 30 mg PO Q12H 30 Days #60 tab 10/14/21 10/23/21 Unknown Rx release Cymbalta 60 mg PO BEDTIME 10/23/21 10/23/21 Unknown History albuterol sulfate 2 puff INHALATION QID PRN 10/23/21 10/23/21 Unknown History enalapril-hydrochlorothiazide 1 tab PO QAM 10/23/21 10/23/21 Unknown History lidocaine 1 - 3 patch TOPICAL .ON FOR 12H 10/23/21 10/23/21 Unknown History OFF 12H PRN multivitamin 1 tab PO DAILY 10/23/21 10/23/21 Unknown History Allergies Allergy/AdvReac Type Severity Reaction Status Date / Time cephalexin [From Keflex] Allergy rash, Verified 10/14/21 10:35 swelling methadone Allergy drug Verified 10/14/21 10:35 allergy oxycodone [From Percocet] Allergy rash,swelli Verified 10/14/21 10:35 ng Sulfa (Sulfonamide Allergy hives Verified 10/14/21 10:35 Antibiotics) trimethoprim [From Bactrim] Allergy rash, Verified 10/14/21 10:35 blisters zolpidem [From Ambien] Allergy allergy Verified 10/14/21 10:35 PFSH Acute PFSH: Medical History Cervical disc disorder with myelopathy of mid-cervical region Chronic headaches Chronic thoracic spine pain Degenerative disc disease, cervical Encounter for long-term opiate analgesic use Hypertension Lumbar degenerative disc disease Lumbar spondylolysis Spondylolisthesis of cervical region Spondylolisthesis of lumbosacral region Ureteral calculi Urolithiasis Surgical History History of ankle surgery History of thoracic spinal fusion S/P section S/P cholecystectomy S/P endoscopy upper and lower S/P fusion of thoracic spine S/P spinal fusion Family History Mother Cancer breast- at 87 Hypertension Father Cancer prostate- at 93 Diabetes Brother Chronic kidney disease (CKD) kidney stones Sister No problems noted. Social History Second hand smoke exposure: No Alcohol intake: never Marital status: / Current occupational status: employed History of recent travel: No Vitals/I&O/Wt Last Vital Signs Temp 97.0 F L 10/22/21 18:31 Pulse 81 10/22/21 18:31 Resp 22 H 10/22/21 18:31 BP 168/103 10/22/21 18:31 Pulse Ox 97 10/22/21 18:31 Weight last 48 hrs Weight 225 lb Physical Exam Const: COMMON NORMALS: no acute distress, alert and well nourished GENERAL APPEARANCE: well kempt and well developed ORIENTATION/CONSCIOUSNESS: not c onfused HENMT: HEAD & SCALP: normocephalic and atraumatic Neck/C-Spine: COMMON NORMALS: full ROM Resp: COMMON NORMALS: normal respiratory effort EFFORT & INSPECTION: No labored and No Actively coughing AUSCULTATION: clear to auscultation bilaterally Cardio: COMMON NORMALS: regular rate and regular rhythm GI: PALPATION: Yes Soft to palpation and Yes Tenderness to palpation present (GI) Neuro: SENSORIUM/ORIENTATION: Yes alert Psych: COMMON NORMALS: mental status grossly normal APPEARANCE: Yes grossly normal and Yes well kempt ATTITUDE: Yes calm and Yes engaged Skin: COMMON NORMALS: no rashes or lesions noted and no jaundice Data : 10/22/21 19:21 10/23/21 05:02 A&P Assessment and plan (1) Hydronephrosis with renal and ureteral calculous obstruction: Plan for left ureteroscopy today. Status: Acute (2) Urolithiasis: Status: Acute Qualifiers: Urinary calculus location: upper urinary tract Qualified Code(s): N20.9 - Urinary calculus, unspecified Attestations Medical Necessity Statement*: Will require surgery. I expect her to be discharge postoperatively after recovery Coding Level of Care Code Acute Human Resources Mgr for [facility] Fwd Exam Comprehensive Diagnoses Hydronephrosis with renal and ureteral calculous obstruction N13.2 Urolithiasis N20.9 Urinary calculus location: upper urinary tract
[2021-10-23] MEDS: famotidine 20 mg/2 mL INJ IVP ×2 (10:15→21:29)
[2021-10-23] MEDS: lidocaine 5% Patch 3 PATCH TOPICAL (10:15)
[2021-10-23] MEDS: sodium chloride 0.9% 1,000 ML 100 ML IV (10:15)
[2021-10-23] MEDS: ketorolac 30 mg/mL INJ 15 MG IVP ×2 (10:24→19:26)
--- NOTE | 2021-10-23 10:29 | PC.CHAP ---
Pastoral Care Encounter/Spiritual Assessment Type of Contact [] Declined cook's assistant visit [] Patient/Family/Request visit [] Outpatient visit [] Follow-up visit [] Physician referral [] Code/Alert [x] Routine visit [] Staff referral [] Actively dying [] Patient sleeping [] Family support [] [] Out of room [] Palliative care [] [x] Receiving care in room [] Pre-surgical visit [] Trauma [x] Long length of stay [] ICU visit [x] Other: with staff care Relational/Emotional Strength [] Patient feels connected with others/family/visitors/staff [] Distress [] Loneliness/isolation [] Abandonment Spirituality of Patient [] Person of Betty [] Attends Gnosticist of their Betty [] Believes in Prayer [] Reads Bible or Anabaptism materials [] There are Spiritual issues to be addressed Integration Aide Interventions [] Prayer [] Active listening [] Non-anxious presence [] Spiritual/emotional support [] Crisis/trauma care [] Spiritual counseling [] Bereavement support [] Provided bereavement packet [] Provided Bible/devotional materials [] Provided toy/stuffed animal, coloring book to patient or family member [] Provided Communion [] Anointing/[place] [] Salvation [] Completed spiritual assessment [] Other: Impact on Illness or Injury [] Angry [] Fearful [] Anxious [] Often cries [] Exhaustion [] Unable to work [] Unable to attend orthodox [] Unable to walk/stand [] Unable to read [] Unable to drive [] Unable to eat/drink [] Unable to sleep [] Unable to be with family [] Patient intubated [] Other: Summary with staff care Time spent with patient 5 mins
--- NOTE | 2021-10-23 11:50 | ANES.PREANE2 ---
Pre-Anesthetic Assessment Pre-Anesthetic Assessment: Height/Weight: Height 1.68 m Weight 108.55 kg Temp Pulse Resp BP Pulse Ox 98.6 F 93 18 145/86 98 10/23/21 11:34 10/23/21 11:34 10/23/21 11:34 10/23/21 11:34 10/23/21 11:34 Preop Diagnosis: lumbar Spondylolisthesis L5/S1; painful thoracic hardware Proposed Procedure: Operation Date: 10/23/21 12:55 Proposed Procedures p Cystoscopy(Not Applicable) - Leandro Marie MD s Retrograde Pyelogram(Left) - MD alexys Lo Ureteroscopy(Left) - MD alexys Lo Laser Lithotripsy(Left) - Leandro Marie MD s Ureteral Stent Placement(Left) - Leandro Marie MD Was Beta Lauryn taken within 24 hours: N/A Was Clonidine taken within 24 hours: N/A Social: Social History: No alcohol and No tobacco Exam: Pre-Anes Outpt Exam: alert and oriented x 3 Airway: Submandibular: WNL Cervical ROM: WNL MP: 3 Dentition: Full History/ROS: No significant history except as noted Pulmonary: Pulmonary: None reported CV/HEM: CV/HEM: HTN : : None reported Hepatic: Hepatic: None reported GI: GI: None reported Metabolic: Metabolic: None reported Neuropsych: Neuropsych: None reported Anesthetic Plan: ASA status: 3 Anesthesia: Anesthesia Evaluation and General Risk of > 500 ml blood loss (7ml/kg in children): No Meds/Allergies Current Medications: Current Medications Generic Name Dose Route Start Last Admin Trade Name Freq PRN Reason Stop Dose Admin Acetaminophen 650 mg 10/23/21 06:14 10/23/21 06:39 Acetaminophen 32 5 Mg Tablet PO 650 mg Q6H PRN Administration MILD PAIN Famotidine 20 mg 10/22/21 22:00 10/23/21 10:15 Famotidine 20 Mg /2 Ml Inj IVP 20 mg Q12H DYLLAN Administration Sodium Chloride 1,000 mls @ 100 m ls/hr 10/22/21 21:47 10/23/21 10:15 Sodium Chloride 0.9% IV 100 mls/hr .Q10H DYLLAN Administration Ketorolac Trometha mine 15 mg 10/22/21 21:47 10/23/21 10:24 Ketorolac 30 Mg/ Ml Inj IVP 10/27/21 21:46 15 mg Q6H PRN Administration MODERATE PAIN Lidocaine 3 patch 10/23/21 09:00 10/23/21 10:15 Lidocaine 5% Pat ch TOPICAL 3 patch DAILY DYLLAN Administration Morphine Sulfate 4 mg 10/22/21 21:47 10/23/21 06:39 Morphine 4 Mg/Ml Sdv 1 Ml IVP 4 mg Q4H PRN Administration SEVERE PAIN PFSH Anesthesia PFSH: Medical History Cervical disc disorder with myelopathy of mid-cervical region Chronic headaches Chronic thoracic spine pain Degenerative disc disease, cervical Encounter for long-term opiate analgesic use Hypertension Lumbar degenerative disc disease Lumbar spondylolysis Spondylolisthesis of cervical region Spondylolisthesis of lumbosacral region Ureteral calculi Urolithiasis Surgical History History of ankle surgery History of thoracic spinal fusion S/P section S/P cholecystectomy S/P endoscopy upper and lower S/P fusion of thoracic spine S/P spinal fusion Family History Mother Cancer breast- at 87 Hypertension Father Cancer prostate- at 93 Diabetes Brother Chronic kidney disease (CKD) kidney stones Sister No problems noted. Social History Second hand smoke exposure: No Alcohol intake: never Marital status: / Current occupational status: employed History of recent travel: No Data Anesthesia CBC & Chem 7: 10/22/21 19:21 10/23/21 05:02 Other Labs: Laboratory Results - last 48 hr 10/22/21 10/22/21 10/22/21 18:54 19:21 19:21 WBC 10.4 H RBC 4.80 Hgb 13.0 Hct 40.7 MCV 84.8 MCH 27.1 L MCHC 31.9 RDW 13.3 Plt Count 244 MPV 10.3 Neut % (Auto) 82.0 Lymph % (Auto) 12.6 Taliaferro % (Auto) 3.7 Eos % (Auto) 1.2 Baso % (Auto) 0.3 Neut # (Auto) 8.55 H Lymph # (Auto) 1.3 Taliaferro # (Auto) 0.4 Eos # (Auto) 0.1 Baso # (Auto) 0.0 Nucleated RBC % (auto) 0 Nucleated RBCs # 0.0 Sodium 138 Potassium 3.7 Chloride 100 Carbon Dioxide 28 Anion Gap 13.7 BUN 10 Creatinine 0.6 GFR Calculation 103.0 Glucose 137 H Calculated Osmolality 287 Calcium 8.9 Total Bilirubin 0.2 AST 17 ALT 19 Alkaline Phosphatase 127 H Total Protein 7.7 Albumin 4.2 Globulin 3.5 Urine Color Yellow Urine Appearance Hazy A Urine pH 7 Ur Specific Martin 1.015 Urine Protein 3+ H Urine Glucose (UA) Norm Urine Ketones Negative Urine Blood 3+ H Urine Nitrate Negative Urine Bilirubin Neg Urine Urobilinogen Norm Ur Leukocyte Esterase 2+ H Urine RBC 40-50 H Urine WBC Too numerous to cnt H Ur Squamous Epith Cells 0-4 H Amorphous Sediment Not Reportable Urine Bacteria 3+ H 10/23/21 05:02 WBC RBC Hgb Hct MCV MCH MCHC RDW Plt Count MPV Neut % (Auto) Lymph % (Auto) Taliaferro % (Auto) Eos % (Auto) Baso % (Auto) Neut # (Auto) Lymph # (Auto) Taliaferro # (Auto) Eos # (Auto) Baso # (Auto) Nucleated RBC % (auto) Nucleated RBCs # Sodium 139 Potassium 3.7 Chloride 101 Carbon Dioxide 28 Anion Gap 13.7 BUN 9 Creatinine 0.7 GFR Calculation 86.2 L Glucose 121 H Calculated Osmolality 288 Calcium 8.4 L Total Bilirubin AST ALT Alkaline Phosphatase Total Protein Albumin Globulin Urine Color Urine Appearance Urine pH Ur Specific Martin Urine Protein Urine Glucose (UA) Urine Ketones Urine Blood Urine Nitrate Urine Bilirubin Urine Urobilinogen Ur Leukocyte Esterase Urine RBC Urine WBC Ur Squamous Epith Cells Amorphous Sediment Urine Bacteria Cardiac Studies: Echocardiogram Ultrasound 04/10/21
[2021-10-23] MEDS: scopolamine 1.5 Patch 1 PATCH TRANSDERMA (12:22)
[2021-10-23] MEDS: levofloxacin-dextrose 5 % 500 MG/100 ML PREMIX 100 MG IV (12:30)
[2021-10-23] MEDS: iohexol 300 mg/mL 50 mL Btl (OR ONLY) XX (12:52)
--- NOTE | 2021-10-23 13:00 | SC_ITS ---
WS: [id number] C-arm fluoroscopy for left ureteral stent placement, 10/23/2021. Clinical Data: ureteroscopy Comparison: CT abdomen and pelvis, 10/22/2021. Findings: Dr. Marie placed a left ureteral stent. SC/C-arm FL for Urology Impression: Left ureteral stent.
--- NOTE | 2021-10-23 13:28 | P.OP_ITS ---
Operative Report Date of procedure: October 23, 2021 Pre-op Diagnosis: Two left ureteral calculi with high-grade obstruction Post-op diagnosis: same Procedure Done: Cystoscopy, left retrograde ureteropyelogram, LEFT ureteroscopy laser lithotripsy and stent Surgeon: Cynthia Anesthesia: General Estimated blood loss: Minimal Urine output: Not measured Complications: None Findings: 2 stones in expected position. Completely fragmented into sand and very small pieces that were basketed and flushed. Condition: stable Disposition: PACU Brief History: Gregoria is a delightful 56-year-old white female with a complex history of urolithiasis and recurrent UTIs. She presented to the hospital last night with severe left renal colic typical for prior stones. CT scan demonstrated 2 stones in 8 mm at the level of the pelvic vessels and a roughly 4 to 5 mm at the left UVJ. No clear evidence of sepsis but her urine did demonstrate some pyuria. No fever chills etc. It was recommended that she be taken to the operating room for attempt at definitive treatment of the stones or just a stent if infection issues become more pronounced Procedure: After urgent evaluation examination and obtaining of informed consent she was taken to the operating suite on 10/23/2021 where general anesthesia was administered without difficulty after appropriate timeout was performed, SCDs confirmed to be functioning, preoperative antibiotics administered, beta-natividad protocol confirmed. Prepped and draped in usual sterile fashion in dorsolithotomy position paying careful attention to avoiding pressure points. 21 Macedonian cystoscope with 30 degree lens was introduced into the urethra meatus and advanced into the bladder without difficulty. The bladder was systematically examined. She did have some chronic cystitis cystica which had been noted previously. No stones. An eight Macedonian cone-tip catheter was intubated to the left ureteral orifice for left retrograde ureteropyelogram demonstrating a filling defect in the distal ureter consistent with a more distal stone on CT scan and a second filling defect at the level of the pelvic vessels consistent with a larger stone on CT scan. The ureter proximal to the more proximal stone was very dilated. A flexible tip guidewire was then passed up the left ureter easily bypassing the distal stone but would not easily pass the more proximal stone. An open-ended ureteral catheter was advanced over the wire but this still did not facilitate passage of the wire beyond the proximal stone. The wire was removed and a Glidewire was then passed through the open-ended ureteral catheter and this easily passed the stone up into the area of the renal pelvis. The open-ended ureteral catheter was then advanced beyond the stone into the more dilated proximal ureter and the wire was exchanged for routine flexible tip guidewire and the catheter removed. The distal ureter was then dilated with a 15 Macedonian 4 cm balloon with no waist. The wire was secured to the drapes as a safety wire. A seven Macedonian offset semirigid ureteroscope was then advanced up the left ureter next to the guidewire. The for stone was easily encountered and fragmented completely with a 365 ?m thulium superpulse laser fiber basically into sand. The scope was then passed up to the more proximal stone it had more of an impacted appearance. Thankfully I was able to expose the leading edge of the stone adequately to facilitate good visualization with laser lithotripsy. The stone was then broken into smaller pieces and this allowed passage of the stone particles into the dilated ureter just proximal to the impaction site which allowed easy completion of the fragmentation with the laser. An X catch basket was then utilized to secure most of the pieces. There was a lot of sand though that could not be secured in the basket. On final inspection because of the impaction site in the distal ureteral dilation it was decided to leave a stent indwelling. It anticipate the stent will stay in for least a couple weeks maybe longer. The cystoscope was then backloaded over the safety wire and a six Macedonian by 28 cm double-pigtail stent was advanced over the guidewire through the cystoscope into appropriate position as confirmed via fluoroscopy and cystoscopy. The stent was confirmed to be draining. Some small fragments that it flushed into the bladder were flushed out of the bladder. Fragments were sent for pathologic evaluation the procedure was completed. She tolerated procedure well without complications and was awakened in the operating room and returned to the recovery room in stable condition. PLANS: 1. Anticipate discharge from second floor this afternoon. 2. Follow-up in about 2 to 3 weeks for cystoscopy stent removal.
--- NOTE | 2021-10-23 13:42 | SUR.PHASEI ---
13:34 RECEIVED PATIENT FROM OR STAFF. A+O X 3. AIRWAY PATENT. ROM AND SENSATIONS X 4 EXTREMITIES. PLACED ON BED MEDINA. STATES MILD FLANK SORENESS.
--- NOTE | 2021-10-23 13:56 | SUR.PHASEI ---
13:45 PLACED ON BEDPAN. PAIN MEDICATION OFFERED. PATIENT DECLINED.
--- NOTE | 2021-10-23 16:22 | ANE.PACU2 ---
Inpatient post-anesthesia follow up: Airway intact: Yes Vital signs: Temperature 97.9 F Pulse Rate 74 Respiratory Rate 12 Blood Pressure 162/91 Pulse Oximetry 96 Oxygen Delivery Me thod Room Air Oxygen Flow Rate 8 Fraction of Inspir ed Oxygen Hydration adequate: Yes Nausea and vomiting: No Pain level: 2 Mental status: Baseline
[2021-10-23] MEDS: ondansetron 4 MG Tablet PO (22:24)
[2021-10-24 01:32] VITALS: RESP 18
[2021-10-24] MEDS: morphine 4 mg/mL SDV 1 mL IVP ×2 (01:32→10:14)
[2021-10-24 03:59] VITALS: BP 133/77; PULSE 86; RESP 17; TEMP 36.8; O2SAT 94
[2021-10-24] MEDS: sodium chloride 0.9% 1,000 ML 100 ML IV (04:19)
[2021-10-24] MEDS: ketorolac 30 mg/mL INJ 15 MG IVP (06:38)
[2021-10-24 07:49] VITALS: BP 127/74; PULSE 81; RESP 16; TEMP 36.5; O2SAT 97
[2021-10-24 10:14] VITALS: RESP 16
[2021-10-24] MEDS: famotidine 20 mg/2 mL INJ IVP (10:15)
[2021-10-24 11:17] VITALS: BP 131/86; PULSE 85; RESP 16; TEMP 36.7; O2SAT 94
--- NOTE | 2021-10-24 11:50 | P.DS_ITS ---
Discharge Providers Date of Admission: 10/22/21 20:10 Date of Discharge: October 23, 2021 Attending Provider at Admission: Leandro Marie MD Attending Provider at Discharge: Leandro Marie MD Primary Care Provider: AYAAN Styles Diagnoses at Discharge Discharge Diagnosis (1) Hydronephrosis with renal and ureteral calculous obstruction: Status: Acute (2) Urolithiasis: Status: Acute Qualifiers: Urinary calculus location: upper urinary tract Qualified Code(s): N20.9 - Urinary calculus, unspecified Reason for Visit Reason for Visit: 2 Left ureteral stone Hospital Course Hospital Course She was admitted through the emergency department on 10/22/2021 for refractory left renal colic secondary to to ureteral stones an 8 mm at the level of the pelvic vessels and roughly 4 to 5 mm in the left distal ureter near the UVJ. She was treated aggressively for symptomatic control. Did not pass the st ones and because of the continued requirement for pain control and also her history of recurrent/chronic cystitis it was recommended to proceed with intervention of the stones. She has never passed a stone is because the 8 mm previously. On 10/23/2021 she underwent a cystoscopy, LEFT: Retrograde, ureteroscopy, laser, stent. Did well. After appropriate recovery she discharged on POD#1 in stable condition with plan to follow-up in about 3 weeks for cystoscopy and stent removal in my office. Physical Exam Const: COMMON NORMALS: no acute distress, alert and well nourished GENERAL APPEARANCE: well kempt and well developed ORIENTATION/CONSCIOUSNESS: not confused Resp: COMMON NORMALS: normal respiratory effort EFFORT & INSPECTION: No labored and No Actively coughing Neuro: SENSORIUM/ORIENTATION: Yes alert Psych: COMMON NORMALS: mental status grossly normal APPEARANCE: Yes grossly normal and Yes well kempt ATTITUDE: Yes calm and Yes engaged Discharge Data Data Completed and Pending: Completed Studies During Hospitalization Category Date Time Status CT kidney stone [id number] Urgent Cat Scan 10/22/21 18:15 Completed XR KUB [id number] Rout ine Exams 10/23/21 06:00 Completed Pending at discharge Category Date Time Status Stone Analysis Ro utine Lab 10/23/21 13:23 Ordered Urine Culture Sta t Lab 10/22/21 18:54 Received Pathology: Surgic al [PTH] Routine Pth 10/23/21 13:24 Ordered Labs from last 24 hours 10/23/21 10/22/21 10/22/21 05:02 19:21 19:21 WBC 10.4 H RBC 4.80 Hgb 13.0 Hct 40.7 MCV 84.8 MCH 27.1 L MCHC 31.9 RDW 13.3 Plt Count 244 MPV 10.3 Neut % (Auto) 82.0 Lymph % (Auto) 12.6 Letcher % (Auto) 3.7 Eos % (Auto) 1.2 Baso % (Auto) 0.3 Neut # (Auto) 8.55 H Lymph # (Auto) 1.3 Letcher # (Auto) 0.4 Eos # (Auto) 0.1 Baso # (Auto) 0.0 Nucleated RBC % (a uto) 0 Nucleated RBCs # 0.0 Sodium 139 138 Potassium 3.7 3.7 Chloride 101 100 Carbon Dioxide 28 28 Anion Gap 13.7 13.7 BUN 9 10 Creatinine 0.7 0.6 GFR Calculation 86.2 L 103.0 Glucose 121 H 137 H Calculated Osmolal ity 288 287 Calcium 8.4 L 8.9 Total Bilirubin 0.2 AST 17 ALT 19 Alkaline Phosphata se 127 H Total Protein 7.7 Albumin 4.2 Globulin 3.5 Urine Color Urine Appearance Urine pH Ur Specific Gravit y Urine Protein Urine Glucose (UA) Urine Ketones Urine Blood Urine Nitrate Urine Bilirubin Urine Urobilinogen Ur Leukocyte Linda ase Urine RBC Urine WBC Ur Squamous Epith Cells Amorphous Sediment Urine Bacteria 10/22/21 18:54 WBC RBC Hgb Hct MCV MCH MCHC RDW Plt Count MPV Neut % (Auto) Lymph % (Auto) Letcher % (Auto) Eos % (Auto) Baso % (Auto) Neut # (Auto) Lymph # (Auto) Letcher # (Auto) Eos # (Auto) Baso # (Auto) Nucleated RBC % (a uto) Nucleated RBCs # Sodium Potassium Chloride Carbon Dioxide Anion Gap BUN Creatinine GFR Calculation Glucose Calculated Osmolal ity Calcium Total Bilirubin AST ALT Alkaline Phosphata se Total Protein Albumin Globulin Urine Color Yellow Urine Appearance Hazy A Urine pH 7 Ur Specific Gravit y 1.015 Urine Protein 3+ H Urine Glucose (UA) Norm Urine Ketones Negative Urine Blood 3+ H Urine Nitrate Negative Urine Bilirubin Neg Urine Urobilinogen Norm Ur Leukocyte Linda ase 2+ H Urine RBC 40-50 H Urine WBC Too numerous to c nt H Ur Squamous Epith Cells 0-4 H Amorphous Sediment Not Reportable Urine Bacteria 3+ H Vitals: Last Vital Signs Temp 98.1 F 10/23/21 13:35 Pulse 88 10/23/21 13:40 Resp 18 10/23/21 13:40 BP 143/94 10/23/21 13:40 Pulse Ox 100 10/23/21 13:40 Discharge Plan Discharge Patient Disposition: Home Condition: Stable Prescriptions: Continued senna 8.6 mg capsule 17.2 mg PO QAM RF: 0 morphine 15 mg tablet 15 mg PO TID PRN (Reason: pain) 30 Days Qty: 90 RF: 0 morphine 15 mg tablet 15 mg PO TID PRN (Reason: pain) 30 Days Qty: 90 RF: 0 morphine 30 mg tablet extended release 30 mg PO Q12H 30 Days Qty: 60 RF: 0 morphine 30 mg tablet extended release 30 mg PO Q12H 30 Days Qty: 60 RF: 0 cyclobenzaprine 5 mg tablet 5 mg PO BID PRN (Reason: muscle spasm) 30 Days Qty: 180 RF: 1 naproxen sodium [Aleve] 220 mg tablet 440 mg PO BID PRN (Reason: Pain) RF: 0 cholecalciferol (vitamin D3) 25 mcg (1,000 unit) capsule 25 mcg PO QAM RF: 0 albuterol sulfate 90 mcg/actuation HFA aerosol inhaler 2 puff INHALATION QID PRN (Reason: Shortness Of Breath) RF: 0 Cymbalta 60 mg capsule,delayed release(DR/EC) 60 mg PO BEDTIME RF: 0 enalapril-hydrochlorothiazide 10-25 mg tablet 1 tab PO QAM RF: 0 lidocaine 5 % adhesive patch,medicated 1 - 3 patch topical .ON FOR 12H OFF 12H PRN (Reason: Pain) RF: 0 multivitamin Tablet 1 tab PO DAILY RF: 0 Discharge Orders: Discharge Order (Routine); Ordered 10/23/21 Ordered By: Leandro Marie Referrals: Lisha Martino FNP [Primary Care Provider] - 10/30/21 11:30 am Leandro Marie MD [Physician] - 11/20/21 (Cystoscopy stent removal PLEASE CALL FOR APPOINTMENT ) Discharge Diet: Advance as tolerated Discharge Activity: Increase activity as tolerated Patient Instructions: Opioid Safety Activity Restrictions/Additional Instructions: 1. The procedure went well. Both stones were effectively treated with laser. You may still have some shaun fragments to pass but that should be easily accomplished. 2. A stent was left indwelling. 3. We will plan on taking the stent out in about 3 weeks in the office. The more proximal stone was impacted into the ureter and that will take some time to heal. Discharge Attestations Time Spent in Discharge Care*: less than 30 min Quality Metrics Clinical Quality Measures During this hospital stay, did patient experience: None Coding Level of Care Code Acute Chg DC note Exam Expanded Problem Focused Diagnoses Hydronephrosis with renal and ureteral calculous obstruction N13.2 Urolithiasis N20.9 Urinary calculus location: upper urinary tract
== END 2021-10-24 12:17 | disposition home or self-care (01) ==
LOC: ER 20:24 → MEDSURG 21:16
PROVIDERS: Physician Assistant; Admitting Provider Urology; Emergency Provider Emergency Medicine; PCP Nurse Practitioner Family; Visit Provider Urology
PROC: 0TJB8ZZ Inspection of Bladder, Via Natural or Artificial Opening Endoscopic (ICD-10-PCS; CPT 52000; principal; 2021-10-23 12:50)
PROC: (CPT 74420; 2021-10-23 12:50)
PROC: 0TJ98ZZ Inspection of Ureter, Via Natural or Artificial Opening Endoscopic (ICD-10-PCS; CPT 52351; 2021-10-23 12:50)
PROC: (CPT 52356; 2021-10-23 12:50)
PROC: (CPT 50605; 2021-10-23 12:50)
DX: N20.1 Calculus of ureter (principal); I10 Essential (primary) hypertension
CPT/HCPCS: 52356; 36415; 74018; 74176; 76000; 80048; 80053; 81001; 82365; 85025; 87077; 87086; 87186; 88300; 96365; 96367; 96375; 99285; G0378; J1100; J1170; J1885; J1956; J2250; J2270; J2405; J2704; J2710; J3010; J3490; J7030; Q0162

== ENCOUNTER → 2021-11-17 13:23 | Outpatient (BNVA) | payer BC, MEDICARE, SELFPAY | PROVIDERS: PCP Nurse Practitioner Family; Visit Provider Urology | DX: N30.20 Other chronic cystitis without hematuria (principal) | CPT/HCPCS: 81003 ==

== ENCOUNTER 2021-12-22 14:14 | Outpatient (CLI) | payer BC, MEDICARE, SELFPAY ==
--- NOTE | 2021-12-22 14:25 | MM_ITS ---
WS: [id number] SCREENING DIGITAL MAMMOGRAM WITH CAD HISTORY: SCREENING COMPARISON: 05/07/2020, 07/14/2012 Bilateral CC and MLO views submitted. Computer aided detection analyzed. Breast composition: There are scattered areas of fibroglandular density. Focal asymmetry measuring 10 mm seen only on the LEFT CC projection the posterior mid breast. While compression views. Mild asymm etry also noted in the posterior breast on the LEFT MLO projection. MM/[place] [id number] IMPRESSION: BI-RADS: 0-Incomplete: Need additional imaging evaluation FOLLOW UP: Need Additional Imaging LEFT breast: Spot compression views (CC and MLO). True ML. Ultrasound to follow if abnormality persists.
== END 2021-12-22 14:15 | disposition home or self-care (01) ==
PROVIDERS: PCP Nurse Practitioner Family; Visit Provider Nurse Practitioner Family
DX: Z12.31 Encounter for screening mammogram for malignant neoplasm of breast (principal)
CPT/HCPCS: 77067

== ENCOUNTER 2022-01-16 15:00 | Outpatient (CLI) | payer BC, MEDICARE, SELFPAY ==
--- NOTE | 2022-01-16 15:12 | XR_ITS ---
WS: [email or web address] DEXA (DUAL ENERGY X-RAY ABSORPTIOMETRY) Bone mineral density was performed using a [employer] machine. HISTORY: POST MENOPAUSAL COMPARISON: None available. Hardware in the lumbar spine. Total hip BMD: Left: 0.878 g/cm2. T score: -1.0 Z score: -1.1 Right: 0.908 g/cm2. T score: -0.8 Z score: -0.8 10 year probability of a major osteoporotic fracture is 14%. XR/XR DEXA axial skeleton* [id number] IMPRESSION: NORMAL BONE MINERAL DENSITY based upon the WHO classification for females.
== END 2022-01-16 15:01 | disposition home or self-care (01) ==
PROVIDERS: PCP Nurse Practitioner Family; Visit Provider Nurse Practitioner Family
DX: Z78.0 Asymptomatic menopausal state (principal)
CPT/HCPCS: 77080

== ENCOUNTER 2022-01-21 11:13 | Outpatient (CLI) | payer BC, MEDICARE, SELFPAY ==
--- NOTE | 2022-01-21 11:24 | MM_ITS ---
WS: [email or web address] ADDITIONAL VIEWS LEFT MAMMOGRAM LEFT BREAST ULTRASOUND HISTORY: ABNORMAL MAMMO COMPARISON: 12/22/2021, 05/07/2020 LEFT MAMMOGRAM: Spot compression views and true ML. The focal asymmetry in the posterior slightly medial RIGHT breast persists and is seen in the CC proj ection. Asymmetry measures 8 mm and is slightly ovoid in shape. Mild asymmetry persists in the upper quadrant posteriorly. LEFT BREAST ULTRASOUND 2-D and color Doppler imaging submitted. Ultrasound directed from 11-1 o'clock. There is a very small cyst at 12:00, 3 cm from the nipple leatha uring 3 x 3 x 3 mm. There is an additional ovoid hypoechoic nodule which may be 2 adjacent cysts at 1 2:00, 3 cm the nipple measuring 8 x 4 x 4 mm. This nodule does correspond to the mammographic abnorma lity and size, location and shape. MM/[place] [id number] IMPRESSION: BI-RADS: 3-Probably Benign FOLLOW UP: 6 Month Follow-up New asymmetry in the posterior LEFT breast by ultrasound this is localized at 1 2:00, 4 cm from the nipple. This may be 2 small cysts adjacent to each other or a single lobulated cyst. There are very few low-level echoes present therefore this is not a simple cyst. Recommend follow-up mammogram and ultrasound in [address] [place] [address].
== END 2022-01-21 11:14 | disposition home or self-care (01) ==
LOC: RAD 11:17
PROVIDERS: PCP Nurse Practitioner Family; Visit Provider Nurse Practitioner Family
DX: R92.8 Other abnormal and inconclusive findings on diagnostic imaging of breast (principal); N64.89 Other specified disorders of breast
CPT/HCPCS: 76642; 77061

== ENCOUNTER 2022-03-06 08:18 | Emergency (ER) | payer BC, MEDICARE, SELFPAY ==
--- NOTE | 2022-03-06 08:19 | CT_ITS ---
WS: [id number] CT ABDOMEN AND PELVIS NONCONTRAST HISTORY: flank pain TECHNIQUE: Imaging performed through the abdomen and pelvis. Coronal and sagittal reformats are submi tted. All CT scans at [facility] use at least one of these dose optimization techniques: auto mated exposure control; mA and/or kV adjustment per patient size (includes targeted exams where dose is matched to clinical indication); or iterative reconstruction. DLP: 1909.47 mGy.cm COMPARISON: 10/22/2021 Lower thorax: Lung bases are clear. Visualized heart is normal. No hiatal hernia. Liver: Mildly enlarged liver with mild hepatic steatosis. No bile duct dilatation. Gallbladder: Prior cholecystectomy. Pancreas: Normal size and attenuation. Normal pancreatic duct. No pancreatitis or mass. Spleen: Normal. Adrenal glands: Normal. No mass. Right kidney: Normal size kidney. Numerous medullary calcifications are noted throughout the renal pe lvis. There are clusters of calcifications involving the upper, mid and lower medullary portions of t he kidney. Calcifications are small but numerous. No obstruction. Left kidney: Normal size kidney. Moderate hydroureteronephrosis secondary to 4 mm ureteral calcificat ion near the pelvic brim. No additional ureteral calcification. Numerous medullary calcifications in the kidney. Aorta: Normal abdominal aorta, no aneurysm or atherosclerosis. No free fluid, intraperitoneal air or significant lymphadenopathy. GI tract: Nondistended stomach. No small bowel or colon obstruction. Normal appendix. Abdominal wall: Negative. No hernia. Pelvis: Minimally distended urinary bladder. No free fluid in the bladder. Uterus and ovaries are raegan ropriate for age. Osseous structures: L5 anterolisthesis by 16 mm. Posterior fusion hardware from L4 to S1. CT/CT kidney stone [id number] IMPRESSION: 1. Moderate LEFT hydroureteronephrosis secondary to 4 mm calcification in the mid to distal ureter. 2. Numerous medullary calcifications within each kidney. 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 3. Normal appendix. 4. Prior cholecystectomy.
--- NOTE | 2022-03-06 08:19 | ECG_ITS ---
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 Measurements Intervals [place] Rate: 84 P: 54 GA: 188 QRS: -33 QRSD: 155 T: 24 QT: 403 QTc: 479 Interpretive Statements SINUS RHYTHM LEFT AXIS DEVIATION [QRS AXIS < -30] RIGHT BUNDLE BRANCH BLOCK [120+ ms QRS DURATION, UPRIGHT V1, 40+ ms S IN I/aVL/V4/V5/V6] MINIMAL VOLTAGE CRITERIA FOR LVH, CONSIDER NORMAL VARIANT [MEETS CRITERIA IN ONE OF: R(aVL), S(V1), R(V5), R(V5/V6)+S(V1)] POSSIBLE ANTERIOR MYOCARDIAL INFARCTION , OF INDETERMINATE AGE [30 ms Q WAVE IN V3/V4, OR R < 0.2 mV IN V4] Compared to ECG 04/09/2021 17:23:03 Myocardial infarct finding now present Electronically Signed On 03-06-2022 20:42:15 CDT by Javan Darling M.D. [id number]
[2022-03-06 08:30] VITALS: BP 155/111; PULSE 80; RESP 18; TEMP 36.5; O2SAT 97; BMI 36.3
[2022-03-06 08:49] VITALS: RESP 16
[2022-03-06] MEDS: ondansetron 2 mg/ML SDV 2 mL 4 MG IVP (08:49)
[2022-03-06] MEDS: morphine 4 mg/mL SDV 1 mL 8 MG IVP (08:49)
[2022-03-06 08:55] LABS: Blood Urea Nitrogen 13 mg/dL (6-20); Calcium 10.2 mg/dL (8.5-10.5); Carbon Dioxide 28 mmol/L (22-29); Chloride 98 mmol/L (98-107); Glucose 178 mg/dL (65-115); Osmolality Calculated 289 mOsm/kg (285-295); Sodium 137 mmol/L (136-145)
[2022-03-06 08:58] LABS: Anion Gap 14.4 (5-19); Potassium 3.4 mmol/L (3.5-5.1)
--- NOTE | 2022-03-06 09:05 | ED_ITS ---
HPI - Female Genitourinary General: Chief complaint: Urogenital-Female Stated complaint: left side flank pain Time Seen by Provider: 03/06/22 08:19 History of Present Illness: 56-year-old female presents emergency room with complaint of left-sided flank pain. Earlier in the week she had some right- sided flank pain that seem to get better she thought she had a bladder infection she had dysuria and frequency she tried vitamin C and cranberry juice it initially seemed like was improving till early hours this morning began having severe left-sided discomfort reminiscent of previous kidney stones. She has not had any albert hematuria that she has noted she denies fever sweats or chills MD elicited complaint: flank pain Onset (ago): hour(s) Location of symptoms: flank Severity: severe Female Urogenital Radiation: L Flank Quality of pain: sharp Consistency: constant Vaginal discharge: none Urinary symptoms: Flank Pain Exacerbating factors: none Relieving factors: none Associated symptoms: Deny abdominal pain, short of breath, fevers/chills, headache(s), nausea, rash, seizures, syncope, vaginal bleeding, vaginal discharge or weakness Treatment prior to arrival: none Review of Systems Const: Denies: fever(s), chills, body aches, change in appetite, fatigue or malaise ENMT: Denies: throat pain, ear or mastoid pain, nasal discharge or nasal congestion Card: Denies: syncope Resp: Denies: dyspnea, productive cough or non-productive cough GI: Denies: abdominal pain or nausea : Denies: vaginal discharge Skin/Breast: Denies: rash or pruritus Neuro: Denies: headache(s) PFSH ED PFSH: Medical History Cervical disc disorder with myelopathy of mid-cervical region Chronic cystitis Chronic headaches Chronic thoracic spine pain Degenerative disc disease, cervical Encounter for long-term opiate analgesic use Hypertension Lumbar degenerative disc disease Lumbar spondylolysis Spondylolisthesis of cervical region Spondylolisthesis of lumbosacral region Ureteral calculi Urolithiasis Surgical History History of ankle surgery History of thoracic spinal fusion S/P section S/P cholecystectomy S/P endoscopy upper and lower S/P fusion of thoracic spine S/P spinal fusion Family History Mother Cancer breast- at 87 Hypertension Father Cancer prostate- at 93 Diabetes Brother Chronic kidney disease (CKD) kidney stones Sister No problems noted. Social History Second hand smoke exposure: No Alcohol intake: never Marital status: / Current occupational status: employed History of recent travel: No Physical Exam Const: COMMON NORMALS: no acute distress GENERAL APPEARANCE: cooperative and comfortable ORIENTATION/CONSCIOUSNESS: Yes awake, Yes oriented to person, Yes oriented to place and Yes oriented to time HENMT: COMMON NORMALS: normocephalic, atraumatic and hearing grossly normal bilaterally HEAD & SCALP: normocephalic and atraumatic Resp: COMMON NORMALS: normal respiratory effort, No retractions, No use of accessory muscles and clear to auscultation bilaterally AUSCULTATION: clear to auscultation bilaterally Cardio: COMMON NORMALS: regular rate, regular rhythm and No murmurs present (Cardio) RATE: regular rate RHYTHM: regular rhythm GI: COMMON NORMALS: Soft to palpation and No hepatosplenomegaly present AUSCULTATION: Yes normoactive bowel sounds PALPATION: Yes Soft to palpation, No Tenderness to palpation present (GI), No Guarding due to palpation present (GI) and Yes No hepatosplenomegaly present : SPECULUM EXAM - VAGINA: No vaginal bleeding OB/EXTERNAL & SPECULUM: No vaginal bleeding Extremity: COMMON NORMALS: normal to inspection, capillary refill normal, no clubbing, cyanosis or edema, no calf tenderness and no pedal edema Neuro: SENSORIUM/ORIENTATION: Yes oriented to person, Yes oriented to place and Yes oriented to time Skin: COMMON NORMALS: no rashes or lesions noted GENERAL SKIN EXAM: no rashes or lesions noted Course Vital Signs: Vital signs: Vital Signs Temperature 97.7 F 03/06/22 08:30 Pulse Rate 80 03/06/22 08:30 Respiratory Rate 16 03/06/22 08:49 Blood Pressure 155/111 03/06/22 10:35 Pulse Oximetry 97 03/06/22 10:35 MDM - Female Medical Decision Making Left-sided nephrolithiasis 4 mm strain urine. White counts normal UA does not show significant signs of infection we will discharge home strain urine she already has narcotic pain medication started on tamsulosin follow-up with [facility] I reviewed the patient's medical records. Lab Data I reviewed the patient's lab results. : 03/06/22 09:17 03/06/22 08:20 Radiology Impressions Abdomen/Pelvis CT 03/06/22 08:19 IMPRESSION: 1. Moderate LEFT hydroureteronephrosis secondary to 4 mm calcification in the mid to distal ureter. 2. Numerous medullary calcifications within each kidney. Findings consistent wi th medullary sponge kidney. 3. Normal appendix. 4. Prior cholecystectomy. Laboratory Results WBC 7.0 10^3/uL (4.0-10.0) 03/06/22 09:17 Corrected WBC Cancelled 03/06/22 08:20 RBC 4.54 10^6/uL (4.1-5.3) 03/06/22 09:17 Hgb 12.7 g/dL (11.5-15.3) 03/06/22 09:17 Hct 39.4 % (37.0-47.0) 03/06/22 09:17 MCV 86.8 fl (81-99) 03/06/22 09:17 MCH 28.0 pg (28.0-34.0) 03/06/22 09:17 MCHC 32.2 g/dL (30.0-36.0) 03/06/22 09:17 RDW 13.2 % (12.1-15.1) 03/06/22 09:17 Plt Count 209 10^3/cmm (130-400) 03/06/22 09:17 MPV 10.1 fL (7.4-10.4) 03/06/22 09:17 Gran % Cancelled 03/06/22 08:20 Neut % (Auto) 73.8 % 03/06/22 09:17 Lymph % (Auto) 18.8 % 03/06/22 09:17 [place] % (Auto) 4.5 % 03/06/22 09:17 Eos % (Auto) 2.3 % 03/06/22 09:17 Baso % (Auto) 0.3 % 03/06/22 09:17 Neut # (Auto) 5.13 10^3/uL (1.8-7.7) 03/06/22 09:17 Lymph # (Auto) 1.3 10^3/uL (0.8-4.8) 03/06/22 09:17 [place] # (Auto) 0.3 10^3/uL (0.2-0.9) 03/06/22 09:17 Eos # (Auto) 0.2 10^3/uL (0.0-0.8) 03/06/22 09:17 Baso # (Auto) 0.0 10^3/uL (0.0-0.1) 03/06/22 09:17 Absolute Gran (auto) Cancelled 03/06/22 08:20 Nucleated RBC % (auto) 0 % 03/06/22 09:17 Nucleated RBCs # 0.0 /100WBC 03/06/22 09:17 Sodium 137 mmol/L (136-145) 03/06/22 08:20 Potassium 3.4 mmol/L (3.5-5.1) L 03/06/22 08:20 Chloride 98 mmol/L (98-107) 03/06/22 08:20 Carbon Dioxide 28 mmol/L (22-29) 03/06/22 08:20 Anion Gap 14.4 (5-19) 03/06/22 08:20 BUN 13 mg/dL (6-20) 03/06/22 08:20 Creatinine 0.6 mg/dL (0.5-0.9) 03/06/22 08:20 GFR Calculation 103.0 mL/min (90-130) 03/06/22 08:20 Glucose 178 mg/dL (65-115) H 03/06/22 08:20 Calculated Osmolality 289 mOsm/kg (285-295) 03/06/22 08:20 Calcium 10.2 mg/dL (8.5-10.5) 03/06/22 08:20 Urine Color Yellow (Yellow) 03/06/22 10:38 Urine Appearance Clear (CLEAR) 03/06/22 10:38 Urine pH 5 (5-7) 03/06/22 10:38 Ur Specific [place] 1.015 (1.005-1.030) 03/06/22 10:38 Urine Protein Neg (Negative) 03/06/22 10:38 Urine Glucose (UA) Norm (Normal) 03/06/22 10:38 Urine Ketones Negative (Negative) 03/06/22 10:38 Urine Blood Neg (Negative) 03/06/22 10:38 Urine Nitrate Negative (Negative) 03/06/22 10:38 Urine Bilirubin Neg (Negative) 03/06/22 10:38 Urine Urobilinogen Norm mg/dL (Negative) 03/06/22 10:38 Ur Leukocyte Esterase Negative (Negative) 03/06/22 10:38 Discharge Plan Discharge Patient Disposition: Home Clinical Impression: Left nephrolithiasis Condition: Stable Prescriptions: New tamsulosin 0.4 mg capsule 0.4 mg PO Q24H Qty: 14 0RF ondansetron HCl 4 mg tablet 4 mg PO Q6H PRN (Reason: nausea and vomiting) Qty: 20 0RF No Action senna 8.6 mg capsule 17.2 mg PO QAM 0RF morphine 15 mg tablet 15 mg PO TID PRN (Reason: pain) 30 Days Qty: 90 0RF Rx Instructions: fill on or after 10/24/21 morphine 15 mg tablet 15 mg PO TID PRN (Reason: pain) 30 Days Qty: 90 0RF Rx Instructions: fill on or after 11/23/21 cyclobenzaprine 5 mg tablet 5 mg PO BID PRN (Reason: muscle spasm) 30 Days Qty: 180 1RF methenamine hippurate 1 gram tablet 1 g PO BID Qty: 180 3RF Rx Instructions: 1 pill twice a day with 1 g vitamin C each dose naproxen sodium [Aleve] 220 mg tablet 440 mg PO BID PRN (Reason: Pain) 0RF cholecalciferol (vitamin D3) 25 mcg (1,000 unit) capsule 25 mcg PO QAM 0RF albuterol sulfate 90 mcg/actuation HFA aerosol inhaler 2 puff INHALATION QID PRN (Reason: Shortness Of Breath) 0RF duloxetine [Cymbalta] 60 mg capsule,delayed release(DR/EC) 60 mg PO BEDTIME 0RF enalapril-hydrochlorothiazide 10-25 mg tablet 1 tab PO QAM 0RF multivitamin Tablet 1 tab PO DAILY 0RF elderberry fruit and flower 460-115 mg Capsule 1 cap PO DAILY 0RF Discharge Orders: Discharge ED (Routine); Ordered 03/06/22 Ordered By: Dakota Montoya Referrals: Lisha Martino FNP [Primary Care Provider] - Discharge Diet: Usual diet Discharge Activity: Resume usual activity Patient Instructions: Opioid Safety Activity Restrictions/Additional Instructions: Drain urine to collect stone. Case management make arrangements for follow-up with Dr. Marie Coding Level of Care Code ED Clinical Laboratory Technologist for Eva Gunter
[2022-03-06] MEDS: sodium chloride 0.9% 1,000 ML 999 ML IV (09:25)
[2022-03-06 09:36] LABS: Basophils % 0.3 %; Eosinophils # 0.2 10^3/uL (0.0-0.8); Eosinophils % 2.3 %; Hematocrit 39.4 % (37.0-47.0); Hemoglobin 12.7 g/dL (11.5-15.3); Lymphocytes # 1.3 10^3/uL (0.8-4.8); Lymphocytes % 18.8 %; Mean Corpuscular HGB Conc 32.2 g/dL (30.0-36.0); Mean Corpuscular Volume 86.8 fl (81-99); Mean Platelet Volume 10.1 fL (7.4-10.4); Monocytes # 0.3 10^3/uL (0.2-0.9); Monocytes % 4.5 %; Neutrophils # 5.13 10^3/uL (1.8-7.7); Neutrophils % 73.8 %; Nucleated Red Blood Cells % 0 %; Platelet Count 209 10^3/cmm (130-400); Red Blood Count 4.54 10^6/uL (4.1-5.3); Red Cell Distribution Width 13.2 % (12.1-15.1)
[2022-03-06 10:35] VITALS: BP 155/111; O2SAT 97
[2022-03-06 11:10] LABS: Add Urine Microscopic? NO; Charge for UA Resulting for Rev
[2022-03-06 11:16] LABS: Urine Appearance Clear (CLEAR); Urine Color Yellow (Yellow)
[2022-03-06 11:17] LABS: Bilirubin Urine Neg (Negative); Blood Urine Neg (Negative); Glucose Urine UA Norm (Normal); Ketones Urine Negative (Negative); Leukocyte Esterase Urine Negative (Negative); Nitrate Urine Negative (Negative); Protein Urine Neg (Negative); Specific Gravity, Urine 1.015 (1.005-1.030); Urobilinogen Urine Norm (Negative); pH Urine 5 (5-7)
--- NOTE | 2022-03-09 12:33 | DCPLANNER ---
Addendum entered by Tamanna Rivers 06/17/22 12:12: Patient had a follow up appointment scheduled for 05.14.22 with urology - patient did attend appointment. Addendum entered by Tamanna Rivers 03/13/22 09:05: Patient has a follow up appointment scheduled for , April at 1:45 with urology. Clinic will call patient with appointment information. Original Note: ultrasound manager had message to schedule a follow up appointment for patient with urology. ultrasound manager sent patients information to the front office staff at urology. Patients information will be printed and reviewed. Clinic will call patient with appointment information.
== END 2022-03-06 12:11 | disposition home or self-care (01) ==
PROVIDERS: Emergency Provider Family Medicine; PCP Nurse Practitioner Family
DX: N20.0 Calculus of kidney (principal)
CPT/HCPCS: 74176; 80048; 81003; 85025; 93005; 96374; 96375; 99284; J2270; J2405; J7030

== ENCOUNTER → 2022-04-15 11:38 | Outpatient (BNVA) | payer BC, MEDICARE, SELFPAY | PROVIDERS: PCP Nurse Practitioner Family; Visit Provider Surgery | DX: E66.9 Obesity, unspecified (principal); Z68.38 Body mass index [BMI] 38.0-38.9, adult; I10 Essential (primary) hypertension | CPT/HCPCS: 99213 ==

== ENCOUNTER 2022-05-14 12:49 | Outpatient (CLI) | payer BC, MEDICARE, SELFPAY ==
--- NOTE | 2022-05-14 12:30 | XR_ITS ---
WS: [id number] XR KUB [id number] REASON FOR EXAM: UROLITHIASIS FINDINGS: Previous CT scan 03/06/2022 demonstrated multiple small intrarenal calculi bilaterally. A small distal left ureteral calculus at the level of the inferior margin of the sacroiliac joint was also noted. On the current examination. Tiny calcifications can be seen on the inverted image overlying both kidn eys. No ureteral or bladder calculus can be identified. XR/XR KUB [id number] IMPRESSION: Multiple small bilateral renal calculi with no definite ureteral calculus ident ified.
== END 2022-05-14 12:50 | disposition home or self-care (01) ==
LOC: RAD 12:50
PROVIDERS: PCP Nurse Practitioner Family; Visit Provider Urology
DX: N20.0 Calculus of kidney (principal); N30.20 Other chronic cystitis without hematuria; N20.9 Urinary calculus, unspecified
CPT/HCPCS: 74018; 81003; 99213

== ENCOUNTER → 2022-08-05 15:42 | Outpatient (BNVA) | payer MEDICARE, BC, SELFPAY | PROVIDERS: PCP Nurse Practitioner Family; Visit Provider Surgery | DX: E66.01 Morbid (severe) obesity due to excess calories (principal); Z68.41 Body mass index [BMI] 40.0-44.9, adult | CPT/HCPCS: 99024 ==

== ENCOUNTER 2022-10-15 11:16 | Emergency (ER) | payer BC, MEDICARE, SELFPAY ==
[2022-10-15] VITALS (8 sets, daily range): BP systolic 126–178; BP diastolic 74–130; PULSE 96; RESP 16; TEMP 36.7; O2SAT 94–98; BMI 35.5
--- NOTE | 2022-10-15 11:29 | XR_ITS ---
WS: [id number] Exam: XR chest 1V portable [id number] Date/Time of Exam: 10/15/2022 11:30 AM Reason For Exam: dyspnea/cough Comparison 04/09/2021. The lungs are clear and fully expanded. Normal cardiomediastinal silhouette. Bony structures are inta ct. No pleural effusions. XR/XR chest 1V portable [id number] IMPRESSION: 1. No acute cardiopulmonary finding.
[2022-10-15 12:13] LABS: Alanine Aminotransferase 26 U/L (0-33); Albumin Level 4.4 g/dL (3.5-5.2); Alkaline Phosphatase 152 U/L (35-105); Aspartate Amino Transferase 25 U/L (0-32); Blood Urea Nitrogen 15 mg/dL (6-20); Calcium 9.6 mg/dL (8.5-10.5); Carbon Dioxide 25 mmol/L (22-29); Chloride 101 mmol/L (98-107); Globulin 3.4 g/dL (1.3-4.6); Glomerular Filtration Rate 85.9 mL/min (90-130); Glucose 161 mg/dL (65-115); Lipase 16 U/L (13-60); Osmolality Calculated 290 mOsm/kg (285-295); Sodium 138 mmol/L (136-145); Total Bilirubin 0.6 mg/dL (0.15-1.2); Total Protein 7.8 g/dL (6.6-8.7)
[2022-10-15 12:14] LABS: Anion Gap 15.6 (5-19); Potassium 3.6 mmol/L (3.5-5.1)
[2022-10-15 12:34] LABS: Basophils % 0.2 %; Eosinophils % 0.3 %; Hematocrit 47.5 % (37.0-47.0); Hemoglobin 15.5 g/dL (11.5-15.3); Lymphocytes # 0.3 10^3/uL (0.8-4.8); Lymphocytes % 4.5 %; Mean Corpuscular HGB Conc 32.6 g/dL (30.0-36.0); Mean Corpuscular Hemoglobin 28.3 pg (28.0-34.0); Mean Corpuscular Volume 86.8 fl (81-99); Mean Platelet Volume 9.9 fL (7.4-10.4); Monocytes # 0.1 10^3/uL (0.2-0.9); Neutrophils # 6.15 10^3/uL (1.8-7.7); Neutrophils % 92.5 %; Nucleated Red Blood Cells % 0 %; Platelet Count 197 10^3/cmm (130-400); Red Blood Count 5.47 10^6/uL (4.1-5.3); Red Cell Distribution Width 13.5 % (12.1-15.1); White Blood Count 6.6 10^3/uL (4.0-10.0)
--- NOTE | 2022-10-15 13:05 | W.ED.URI ---
HPI - URI/Sore Throat General: Chief Complaint: Upper Respiratory Infection Stated Complaint: Flu Time Seen by Provider: 10/15/22 11:28 Source: patient Mode of arrival: ambulatory History of Present Illness: 49-year-old female presents to the emergency room with flulike symptoms for the last couple of days. She feels weak and dizzy feels as if she may pass out. Is been very nauseous with vomiting and diarrhea as well. She denies any hematochezia melena hematemesis or coffee-ground emesis. Low-grade subjective fever nonproductive cough. MD elicited complaint: fever and cough Onset (ago): day(s) Consistency: constant Description of mucous: clear Exacerbating factors: nothing Relieving factors: nothing Associated symptoms: Deny abdominal pain, change in voice, chills, chest pain, congestion, cough, diarrhea, epistaxis, ear or mastoid pain, fever(s), headache(s), myalgias, nasal congestion, nausea, rash, rhinorrhea, short of breath, sinus pain, stiffness, sore throat or vomiting Treatments prior to arrival: none Review of Systems Const: Denies: fever(s) or chills ENMT: Denies: ear or mastoid pain, nasal congestion, epistaxis or sinus pain Card: Denies: chest pain GI: Denies: abdominal pain, nausea, vomiting or diarrhea : Denies: dysuria, urinary frequency or urinary urgency Neuro: Denies: headache(s) PFS ED PFSH: Medical History Cervical disc disorder with myelopathy of mid-cervical region Chronic cystitis Chronic headaches Chronic thoracic spine pain Degenerative disc disease, cervical Encounter for long-term opiate analgesic use Hypertension Lumbar degenerative disc disease Lumbar spondylolysis Spondylolisthesis of cervical region Spondylolisthesis of lumbosacral region Ureteral calculi Urolithiasis Surgical History History of ankle surgery History of thoracic spinal fusion S/P section S/P cholecystectomy S/P endoscopy upper and lower S/P fusion of thoracic spine S/P spinal fusion Family History Mother Cancer breast- at 87 Hypertension Father Cancer prostate- at 93 Diabetes Brother Chronic kidney disease (CKD) kidney stones Sister No problems noted. Social History Smoking and tobacco status: never smoked Second hand smoke exposure: No Alcohol intake: never Marital status: / Current occupational status: employed History of recent travel: No Physical Exam Const: GENERAL APPEARANCE: cooperative and comfortable ORIENTATION/CONSCIOUSNESS: Yes awake, Yes oriented to person, Yes oriented to place and Yes oriented to time HENMT: COMMON NORMALS: normocephalic HEAD & SCALP: normocephalic Resp: COMMON NORMALS: normal respiratory effort, No retractions, No use of accessory muscles and clear to auscultation bilaterally AUSCULTATION: clear to auscultation bilaterally Cardio: COMMON NORMALS: regular rate, regular rhythm and No murmurs present (Cardio) RATE: regular rate RHYTHM: regular rhythm GI: COMMON NORMALS: Soft to palpation and No hepatosplenomegaly present AUSCULTATION: Yes normoactive bowel sounds PALPATION: Yes Soft to palpation, No Tenderness to palpation present (GI), No Guarding due to palpation present (GI) and Yes No hepatosplenomegaly present Extremity: COMMON NORMALS: normal to inspection, capillary refill normal, no clubbing, cyanosis or edema, no calf tenderness and no pedal edema Neuro: SENSORIUM/ORIENTATION: Yes oriented to person, Yes oriented to place and Yes oriented to time Skin: COMMON NORMALS: no rashes or lesions noted GENERAL SKIN EXAM: no rashes or lesions noted Course Vital Signs: Vital signs: Vital Signs Temperature 98.0 F 10/15/22 11:23 Pulse Rate 96 10/15/22 11:23 Respiratory Rate 16 10/15/22 11:23 Blood Pressure 140/89 10/15/22 14:00 Pulse Oximetry 97 10/15/22 14:30 Oxygen Delivery Me thod 10/15/22 11:23 MDM - URI/Sore Throat Medical Decision Making Improved after fluids. Still has some nausea but is able to take p.o. Flu and COVID swabs negative. White count normal BUN and creatinine normal discharge patient home with antiemetics clear liquid diet recheck if not improving Medical Records I reviewed the patient's medical records. Lab Data I reviewed the patient's lab results. 10/15/22 12:28 10/15/22 11:20 Radiology Impressions Chest X-Ray 10/15/22 11:29 IMPRESSION: 1. No acute cardiopulmonary finding. Laboratory Results WBC 6.6 10^3/uL (4.0-10.0) 10/15/22 12:28 Corrected WBC Cancelled 10/15/22 11:20 RBC 5.47 10^6/uL (4.1-5.3) H 10/15/22 12:28 Hgb 15.5 g/dL (11.5-15.3) H 10/15/22 12:28 Hct 47.5 % (37.0-47.0) H 10/15/22 12:28 MCV 86.8 fl (81-99) 10/15/22 12: MCH 28.3 pg (28.0-34.0) 10/15/22 12:28 MCHC 32.6 g/dL (30.0-36.0) 10/15/22 12: RDW 13.5 % (12.1-15.1) 10/15/22 12:28 Plt Count 197 10^3/cmm (130-400) 10/15/22 12:28 MPV 9.9 fL (7.4-10.4) 10/15/22 12:28 Gran % Cancelled 10/15/22 11:20 Neut % (Auto) 92.5 % 10/15/22 12:28 Lymph % (Auto) 4.5 % 10/15/22 12: [place] % (Auto) 2.0 % 10/15/22 12: Eos % (Auto) 0.3 % 10/15/22 12:28 Baso % (Auto) 0.2 % 10/15/22 12:28 Neut # (Auto) 6.15 10^3/uL (1.8-7.7) 10/15/22 12:28 Lymph # (Auto) 0.3 10^3/uL (0.8-4.8) L 10/15/22 12:28 [place] # (Auto) 0.1 10^3/uL (0.2-0.9) L 10/15/22 12:28 Eos # (Auto) 0.0 10^3/uL (0.0-0.8) 10/15/22 12:28 Baso # (Auto) 0.0 10^3/uL (0.0-0.1) 10/15/22 12:28 Absolute Gran (auto) Cancelled 10/15/22 11:20 Nucleated RBC % (auto) 0 % 10/15/22 12: Nucleated RBCs # 0.0 /100WBC 10/15/22 12:28 Sodium 138 mmol/L (136-145) 10/15/22 11:20 Potassium 3.6 mmol/L (3.5-5.1) 10/15/22 11:20 Chloride 101 mmol/L (98-107) 10/15/22 11:20 Carbon Dioxide 25 mmol/L (22-29) 10/15/22 11:20 Anion Gap 15.6 (5-19) 10/15/22 11:20 BUN 15 mg/dL (6-20) 10/15/22 11:20 Creatinine 0.7 mg/dL (0.5-0.9) 10/15/22 11:20 GFR Calculation 85.9 mL/min (90-130) L 10/15/22 11:20 Glucose 161 mg/dL (65-115) H 10/15/22 11:20 Calculated Osmolality 290 mOsm/kg (285-295) 10/15/22 11:20 Calcium 9.6 mg/dL (8.5-10.5) 10/15/22 11:20 Total Bilirubin 0.6 mg/dL (0.15-1.2) 10/15/22 11:20 AST 25 U/L (0-32) 10/15/22 11:20 ALT 26 U/L (0-33) 10/15/22 11:20 Alkaline Phosphatase 152 U/L (35-105) H 10/15/22 11:20 Total Protein 7.8 g/dL (6.6-8.7) 10/15/22 11:20 Albumin 4.4 g/dL (3.5-5.2) 10/15/22 11:20 Globulin 3.4 g/dL (1.3-4.6) 10/15/22 11:20 Lipase 16 U/L (13-60) 10/15/22 11:20 Nasal Influ A H1 2008 PCR Not detected (NOT DETECT) 10/15/22 12:20 Coronavirus 229E (PCR) Not detected (NOT DETECT) 10/15/22 12:20 Influenza A (H1) PCR Not detected (NOT DETECT) 10/15/22 12:20 Influenza A (H3) PCR Not detected (NOT DETECT) 10/15/22 12:20 Influenza Type A Ag Cancelled 10/15/22 12:20 Influenza Type A (PCR) Not detected (NOT DETECT) 10/15/22 12:20 Influenza Type B Ag Cancelled 10/15/22 12:20 Influenza Type B (PCR) Not detected (NOT DETECT) 10/15/22 12:20 SARS-CoV-2 (PCR) Not detected (NOT DETECT) 10/15/22 12:20 Discharge Plan Discharge Patient Disposition: Home Clinical Impression: Nausea & vomiting, Gastroenteritis Condition: Stable Prescriptions: New promethazine 25 mg tablet 25 mg PO Q6H PRN (Reason: nausea and vomiting) Qty: 20 0RF No Action senna 8.6 mg capsule 17.2 mg PO QAM morphine 15 mg tablet 15 mg PO TID PRN (Reason: pain) 30 Days Qty: 90 0RF Rx Instructions: fill on or after 10/24/21 morphine 15 mg tablet 15 mg PO TID PRN (Reason: pain) 30 Days Qty: 90 0RF Rx Instructions: fill on or after 11/23/21 cyclobenzaprine 5 mg tablet 5 mg PO BID PRN (Reason: muscle spasm) 30 Days Qty: 180 1RF methenamine hippurate 1 gram tablet 1 g PO BID Qty: 180 3RF Rx Instructions: 1 pill twice a day with 1 g vitamin C each dose naproxen sodium [Aleve] 220 mg tablet 440 mg PO BID PRN (Reason: Pain) cholecalciferol (vitamin D3) 25 mcg (1,000 unit) capsule 25 mcg PO QAM ciprofloxacin HCl 500 mg tablet 250 mg PO BID Qty: 30 1RF tamsulosin 0.4 mg capsule 0.4 mg PO Q24H Qty: 30 1RF albuterol sulfate 90 mcg/actuation HFA aerosol inhaler 2 puff INHALATION QID PRN (Reason: Shortness Of Breath) duloxetine [Cymbalta] 60 mg capsule,delayed release(DR/EC) 60 mg PO BEDTIME enalapril-hydrochlorothiazide 10-25 mg tablet 1 tab PO QAM multivitamin Tablet 1 tab PO DAILY elderberry fruit and flower 460-115 mg Capsule 1 cap PO DAILY ondansetron HCl 4 mg tablet 4 mg PO Q6H PRN (Reason: nausea and vomiting) Qty: 20 0RF Discharge Orders: Discharge ED (Routine); Ordered 10/15/22 Ordered By: Dakota Montoya Referrals: Lisha Martino FNP [Primary Care Provider] - Discharge Diet: Clear Liquid Discharge Activity: Increase activity as tolerated Patient Instructions: Opioid Safety, Pain Management Activity Restrictions/Additional Instructions: You were seen today for nausea and vomiting. Your flu and COVID swabs were negative. Clear liquid diet for 24 to 48 hours and advance as tolerated use the promethazine as needed for nausea and vomiting. Coding Level of Care Code ED Sponge Maker for Eva Fwd Exam Detailed
[2022-10-15] MEDS: morphine 4 mg/mL SDV 1 mL IVP (13:09)
[2022-10-15] MEDS: sodium chloride 0.9% 1,000 ML 999 ML IV ×2 (13:13→14:29)
[2022-10-15] MEDS: promethazine 25 mg/mL SDV 1 mL 12.5 MG IM (14:02)
[2022-10-15 14:21] LABS: Adenovirus Not Detected (NOT DETECT); Chlamydia Pneumoniae Not Detected (NOT DETECT); Coronavirus 229E,HKU1,NL63,OC4 Not Detected (NOT DETECT); Human Metapneumovirus Not Detected (NOT DETECT); Human Rhinovirus/Enterovirus Not Detected (NOT DETECT); Influenza A Not Detected (NOT DETECT); Influenza A H1 Not Detected (NOT DETECT); Influenza A H1-2009 Not Detected (NOT DETECT); Influenza A H3 Not Detected (NOT DETECT); Influenza B Not Detected (NOT DETECT); Mycoplasma Pneumoniae Not Detected (NOT DETECT); Parainfluenza Virus Type 1 Not Detected (NOT DETECT); Parainfluenza Virus Type 2 Not Detected (NOT DETECT); Parainfluenza Virus Type 3 Not Detected (NOT DETECT); Parainfluenza Virus Type 4 Not Detected (NOT DETECT); Respiratory Syncytial Virus A Not Detected (NOT DETECT); Respiratory Syncytial Virus B Not Detected (NOT DETECT); SARS-COV-2 Not Detected (NOT DETECT)
[2022-10-15 14:38] LABS: Influenza A Not Detected (NOT DETECT); Influenza A H1 Not Detected (NOT DETECT); Influenza A H1-2009 Not Detected (NOT DETECT); Influenza A H3 Not Detected (NOT DETECT); Influenza B Not Detected (NOT DETECT); Results from GENMARK
== END 2022-10-15 14:51 | disposition home or self-care (01) ==
PROVIDERS: Emergency Provider Family Medicine; PCP Nurse Practitioner Family
DX: K52.9 Noninfective gastroenteritis and colitis, unspecified (principal); Z20.822 Contact with and (suspected) exposure to COVID-19; I10 Essential (primary) hypertension
CPT/HCPCS: 36415; 71045; 80053; 83690; 85025; 87631; 87635; 96361; 96372; 96374; 99284; J2270; J2550; J7030

== ENCOUNTER 2022-11-12 09:31 | Outpatient (CLI) | payer MEDICARE, SELFPAY ==
--- NOTE | 2022-11-12 09:41 | XR_ITS ---
WS: [id number] XR KUB [id number] REASON FOR EXAM: STONES FINDINGS: Significant amount of colon overlies the kidneys. There still appears to be multiple small intrarenal calculi bilaterally without significant interval change compared to the examination of 05/14/2022. No other urinary tract calculi. No other significant abdominal abnormality. XR/XR KUB [id number] IMPRESSION: Stable multiple small intrarenal calculi bilaterally.
== END 2022-11-12 09:32 | disposition home or self-care (01) ==
LOC: RAD 09:33
PROVIDERS: PCP Nurse Practitioner Family; Visit Provider Urology
DX: N20.9 Urinary calculus, unspecified (principal)
CPT/HCPCS: 74018; 81003